=== PATIENT | male | born 1990 | race Caucasian/White ===

== ENCOUNTER 2020-06-07 11:06 | Outpatient (CLI) | payer SELFPAY ==
[2020-06-11 15:27] LABS: Patient Race White; SARS-CoV-2 RNA Undetected (Undetected); SARS-CoV-2 Specimen Source Nasal
== END 2020-06-07 11:26 ==
PROVIDERS: PCP Family Medicine; Visit Provider Family Medicine
DX: Z11.59 Encounter for screening for other viral diseases (principal)
CPT/HCPCS: U0003

== ENCOUNTER 2021-05-05 04:40 | Emergency (ER) | payer BC, SELFPAY ==
--- NOTE | 2021-05-05 04:45 | DI.RAD_ITS ---
Exam(s) XR PORTABLE CHEST AP EXAM: XR PORTABLE CHEST AP CLINICAL HISTORY: coug, sob, r/o pneumonia TECHNIQUE: 2D digital imaging was performed of the chest. One image was obtained. An AP view was ob tained. COMPARISON: CR CHEST 2 VIEWS PA,LAT from 05/16/2015 CR CHEST 2 VIEWS PA,LAT from 05/16/2015 FINDINGS: MEDIASTINUM: Normal. HEART: Normal. PULMONARY VASCULATURE: Normal. LUNGS: Clear. PLEURAL SPACE: No pleural effusion or pneumothorax. BONE:Within normal limits for the patient's age. OTHER FINDINGS:Normal. IMPRESSION: No acute pulmonary findings. DATA REPOSITORY: RADIATION DOSE DELIVERED:
--- NOTE | 2021-05-05 04:45 | RT.EKG_ITS ---
APPROVED REPORT Exam: Resting ECG Reason for Exam: chest burning Patient Location: E HR:76 bpm ECG Measurements Heart Rate 76 AXIS PA 136 P 64 QRSd 90 QRS 57 QT 376 T 66 QTc 424 Conclusion Sinus rhythm...normal P axis, V-rate 60- 99 Physician: no stemi
[2021-05-05 04:46] VITALS: BP 143/80; PULSE 85; RESP 18; TEMP 36.7; O2SAT 97
--- NOTE | 2021-05-05 05:08 | ED.GENADUL_ITS ---
Discharge Plan Disposition Patient Disposition: HOME Condition: Good Discharge Details Clinical Impression: URI (upper respiratory infection) Primary Care Provider: Nikunj Tipton ED Provider: Vance Whitt Home Meds and New Rx's Prescriptions: No Action No Known Home Meds RF: 0 Discharge Instructions Instructions: Upper Respiratory Infection (ED) Additional Instructions: At this at this time there is no evidence of large pneumonia. I suspect you have mild bronchitis. This is likely from a mild virus causing her runny nose sore throat and congestion. Please take the inhaler, 2 puffs every 4-6 hours as needed. Taking loratadine will also help diminish your symptoms of runny nose and congestion. You can take 10 mg of loratadine. This can be found over -the-counter. If you notice any worsening of your symptoms, or any new symptoms such as vomiting, diarrhea, fever, chills, shortness of breath, chest pain, numbness, weakness, or fainting , please return immediately to the emergency department for reevaluation. Please follow up with your primary care provider as soon as possible for reassessment and reevaluation. As always, it was a pleasure part icipating in your medical care today. Referrals: Nikunj Tipton, [facility] [Primary Care Provider] - Discharge Data Discharge Date/Time-TO BE ENTERED AT DEPARTURE: 05/05/21 06:28 Medical Decision Making 30-year-old male with a past medical history of asthma presents today for evaluation of cough, burning in his chest, sore throat and congestion. Patient states that the symptoms have been present for the last 12 hours, worsening in the last 2-3. He is fully vaccinated against Covid 2 shots. He denies any previous cardiac disease. He denies any vomiting or diarrhea. He denies any other sick contacts at home. No other complaints at this time. No other modifying factors. The patient does not smoke. Physical exam demonstrates good oxygenation, clear lung sounds, erythema is noted in the posterior oropharynx. Differential includes viral URI, coronavirus, mild bronchitis. Will get a portable chest x-ray, give a breathing treatment, get a Covid test and strep test, monitor closely and reassess. 6:24 AM Covid test is negative, strep test is negative. Symptoms likely secondary to a mild viral upper respiratory infection. Patient was given a breathing treatment and he did have improvement with this. Will give an albuterol inhaler for home use. Discussed red flags which to return. No clinical evidence of pneumonia at this time. I have extensively reviewed the treatment plan and discharge instructions with the patient. I have addressed all patient concerns at this time. The patient was made aware of what symptoms to monitor for that would warrant a return to the emergency department. Discussed the plan with the patient, they demonstrate verbal understanding and agreement with our assessment and plan at this time. The documentation in this chart was dictated using [employer] dictation software. Please excuse any dictation errors. FINDINGS: MEDIASTINUM: Normal. HEART: Normal. PULMONARY VASCULATURE: Normal. LUNGS: Clear. PLEURAL SPACE: No pleural effusion or pneumothorax. BONE:Within normal limits for the patient's age. OTHER FINDINGS:Normal. IMPRESSION: No acute pulmonary findings. HPI General Date/Time Provider Initiated Documentation: 05/05/21 04:41 . HPI Narrative: 30-year-old male with a past medical history of asthma presents today for evaluation of cough, burning in his chest, sore throat and congestion. Patient states that the symptoms have been present for the last 12 hours, worsening in the last 2-3. He is fully vaccinated against Covid 2 shots. He denies any previous cardiac disease. He denies any vomiting or diarrhea. He denies any other sick contacts at home. No other complaints at this time. No other modifying factors. The patient does not smoke. Related Data Home Medications Medication Instructions Recorded Confirmed Unknown [No Known Home Meds] 04/20/19 08/11/20 Allergies Allergy/AdvReac Type Severity Reaction Status Date / Time tramadol Allergy Severe Swelling/Ed Verified 05/05/21 04:49 bhupendra General Stated Complaint: RespSymp JOMAR: 4 Review of Systems All systems reviewed & are unremarkable except as noted in HPI and below PFSH Family History Mother Hyperlipidemia Father , age 35 No problems noted. Social History Smoking/Tobacco Use Status: Current every day Tobacco Type: smokeless tobacco Smokeless tobacco user: chewing tobacco Quit status: not considering quitting Second Hand Exposure: Yes Smoking risk assessment performed?: Yes Alcohol Intake: current Alcohol Intake frequency: a few times a week Alcohol type: beer and hard liquor Drug use: Never Substance use type: does not use Caregiver/Support person: No Household members: spouse and children Housing: house Communication Needs: None Do you need help understanding health information?: Often Pets and animals: Yes Pets and animals: cat(s), dog(s), fish and other Details: chickens Sexually active: Yes Do you think of yourself as: straight/heterosexual Current gender identity: male What is your relationship status?: How often do you talk on the phone with friends or family?: never How often do you get together with friends or relatives?: never How often do you attend oriental orthodox or church services?: decline to answer Do you belong to any clubs or organized social groups?: no Panel score (0-1 are the most socially isolated patients): 1 What type of physical activity do you participate in: none Ludy/Pentecostalism: None Seatbelt use: always Helmet use: Yes Helmet use: sometimes Drive intox or ride w/intox motorcycle delivery driver: No Do you feel safe at home: Yes Do you feel safe in your relationship?: Yes Victim of physical abuse: No Victim of emotional abuse: No Victim of sexual abuse: No Would you like helpful sources: No Exam Narrative Exam Narrative: 1.Const: Well-nourished, Well-developed, appearing stated age 2.Eyes: PERRL, no conjunctival injection, and symmetrical lids. 3.ENT: Atraumatic external nose and ears. Moist MM. Neck: Symmetric, trachea midline, No thyromegaly. Mild erythema in the posterior oropharynx, minimal tonsillar enlargement, no tonsillar exudates. No evidence of peritonsillar abscess. 4.CVS: +S1/S2, No murmurs or gallops. Peripheral pulses 2+ and equal in all extremities. Brisk capillary refill in all extremities. 5.RESP: Unlabored respiratory effort. Clear to auscultation bilaterally. No wheezes rales or rhonchi 6.GI: Soft, Nontender/Nondistended, No hepatosplenomegaly. No guarding or rebound. 7.MSK: Normocephalic/Atraumatic, Extremities w/o deformity or ttp No cyanosis or clubbing, Normal movement of all extremities 8.Skin: Warm, Dry. No rashes or lesions. 9.Neuro: back line cook II-XII grossly intact. Sensation grossly intact, no focal neurologic deficits. 10.Psych: (AAO) x3. Appropriate mood and affect Course Vital Signs Vital signs: Vital Signs Temperature 36.7 C 05/05/21 04:46 Pulse 85 05/05/21 04:46 Respiratory Rate 18 05/05/21 04:46 Blood Pressure 143/80 H 05/05/21 04:46 Pulse Oximetry 97 05/05/21 04:46 Temperature 36.7 C 05/05/21 04:46 Temperature Source Skin 05/05/21 04:46 Pulse 85 05/05/21 04:46 Respiratory Rate 18 05/05/21 04:46 Respiratory Effort Non-Labored 05/05/21 04:51 Blood Pressure 143/80 H 05/05/21 04:46 Pulse Oximetry 97 05/05/21 04:46 Pain Level 1 05/05/21 04:46 PAWSS Have you Been Recently Intoxicated or Drunk Within the Last 30 days?: Yes Have you Ever Experienced Previous Episodes of Alcohol Withdrawal?: No Have you ever Experienced Withdrawal Seizures?: No Have you ever Experienced Delirium Tremens(DT)s?: No Have you ever undergone Alcohol Rehabilitation Treatment (i.e, inpt ot outpatient treatment programs)?: No Have you ever Experienced Blackouts?: No Have you ever Combined Alcohol with other Downers within the last 90 days?: No Have you ever Combined Alcohol with any other Substance of Abuse during the last 90 days?: No Positive Blood Alcohol level on Presentation? [PCS.BAL]: No Evidence of Increased Autonomic Activity (i.e. HR>120, tremor, sweating, agitation, nausea)?: No Result: 1
[2021-05-05 05:20] LABS: Source Nasal/Nares
[2021-05-05 05:23] VITALS: RESP 1; O2SAT 99
[2021-05-05] MEDS: Albuterol/Ipratropium 3 ML UPD VIAL UPD (05:23)
[2021-05-05 05:52] VITALS: RESP 1
[2021-05-05 06:11] LABS: COVID-19 PCR Negative (Negative)
[2021-05-05 06:27] VITALS: BP 127/63; PULSE 85; RESP 16; O2SAT 97
[2021-05-05] MEDS: Albuterol HFA 8 GM 60 PUFF INH IH (06:28)
[2021-05-05] MEDS: Inhaler, Assist Device 1 EACH MC (06:29)
--- NOTE | 2021-05-05 07:31 | DI.VRAD_ITS ---
PROCEDURE INFORMATION: Exam: XR Chest Exam date and time: 05/05/2021 4:50 AM Age: 30 years old Clinical indication: Cough and shortness of breath; Patient HX: R/O pneumonia TECHNIQUE: Imaging protocol: XR of the chest. Views: 1 view. COMPARISON: CR CHEST 2 VIEWS PA,LAT 05/16/2015 10:42 AM FINDINGS: Lungs: Unremarkable. No consolidation. Pleural spaces: Unremarkable. No pleural effusion. No pneumothorax. Heart/Mediastinum: Unremarkable. No cardiomegaly. Bones/joints: Unremarkable. IMPRESSION: No acute findings. There is no significant interval change from the previous study. Dictated and Authenticated by: Clyde Mon MD. Ordering:MOHAN Woodard MD
== END 2021-05-05 06:28 | disposition home or self-care (01) ==
PROVIDERS: Emergency Provider Student in an Organized Health Care Education/Training Program; PCP Nurse Practitioner Family
DX: J06.9 Acute upper respiratory infection, unspecified (principal); R06.02 Shortness of breath
CPT/HCPCS: 87635; 87880; 93005; 94640; 99284; 71045; 87081; 93010; 99283; J7620

== ENCOUNTER 2022-01-27 12:02 | Emergency (ER) | payer OTHER, SELFPAY ==
--- NOTE | 2022-01-27 12:00 | DI.RAD_ITS ---
Exam(s) XR ANKLE LT COMPLETE EXAM: XR ANKLE LT COMPLETE CLINICAL HISTORY: trauma medial pain. TECHNIQUE: 2D digital imaging was performed. COMPARISON: No exams were available for comparison FINDINGS: 3 views There is no oblique mildly displaced fracture of the distal fibula above the lateral malleolus. Ther e is widening of the mortise. There is also an avulsion fracture off the posterior aspect of the pos terior malleolus. Medial malleolus appears intact as does the talar dome and base of the 5th metatar martha. IMPRESSION: Distal fibular fracture as well as suspected fracture of the posterior malleolus. There is widening of the ankle mortise implying significant ligamentous injury/instability. DATA REPOSITORY: RADIATION DOSE DELIVERED:
[2022-01-27 12:07] VITALS: BP 131/65; PULSE 69; RESP 20; TEMP 36.2; O2SAT 99
--- NOTE | 2022-01-27 12:15 | ED.GENADUL_ITS ---
Discharge Plan Disposition Patient Disposition: HOME Condition: Stable Discharge Details Clinical Impression: Bimalleolar fracture of left ankle Primary Care Provider: Nikunj Tipton ED Provider: Gabe Garcia Home Meds and New Rx's Prescriptions: No Action No Known Home Meds Discharge Instructions Instructions: Ankle Fracture (ED) Additional Instructions: You may take 1000 mg of Tylenol along with 600 mg of ibuprofen every 6 hours as needed for pain. We will also given a limited supply of narcotic pain medication and take as directed. It is important that you call the orthopedic office tomorrow for arrangement of follow-up appointment with high likelihood of surgery this week. If you have any significant worsening of symptoms including unbearable pain, change of color to your foot, severe swelling, or lack of sensation please return immediately to the emergency department. Referrals: [facility] [Provider Group] Discharge Data Discharge Date/Time-TO BE ENTERED AT DEPARTURE: 01/27/22 15:33 Medical Decision Making Patient presenting to the emergency department for chief complaint of left ankle injury. Approximately 20 minutes prior to arrival patient was playing softball and went to slide into [employer] base when he felt his ankle snap and twist. Patient denies any other injury or trauma. Physical exam shows significant tenderness and swelling to medial left ankle with no range of motion secondary to severe pain and discomfort. Exam otherwise unremarkable. I am concerned for fracture so will perform radiological imaging along with giving pain and nausea medication with some fluids. There is a slight abrasion to the anterior surface a similar point to where pain is so we will see if this correlates to area of fracture and possible subtle open fracture. Review of radiological imaging shows acute distal fibular fracture with suspected posterior malleolus fracture along with suggestion of ligamentous injury and ankle instability. No local orthopedist on-call today so [place] [facility] [place] Ray on[place] orthopedic provider [place] [facility] Recommended posterior and stirrup splinting with slight pressure placed on the medial aspect with splinting. We did state that they were able to follow up with patient potential later this week but after discussion with patient patient states that he would prefer to follow-up locally. Patient placed upon the fracture list and informed to call the office tomorrow. Gentle reduction of the fracture was attempted when of placing the Ortho-Glass splint on but repeat images were not performed as I do not feel much additional benefit would be able to be obtained with further pressure and mild reduction. Patient was neurovascularl intact both pre and post splint placement. Patient given limited supply of narcotics from the emergency department and recommended to take [id number] acetaminophen and Motrin as needed for discomfort. After discussion of diagnosis and plan of care patient has no further needs, questions, or concerns and states clear understanding to return to the emergency department for any worsening symptoms. Did discuss with patient risk versus benefit of narcotic use and patient stated understanding of use of narcotics for pain control along with other modalities he can use to help with pain. This documentation was generated using [employer] system, please disregard any oddities of phrase or misspellings. Imaging Data Radiologic Study: Radiologist's impression: FINDINGS: Bones/joints: there is widening of the medial clear space. acute mildly displaced distal fibular fracture. small bony densities are seen along the posterior aspect of the distal tibia concerning for fracture. Soft tissues: soft tissue swelling. IMPRESSION: Acute distal fibular fracture. suspected acute posterior malleolar fracture. widening of the medial clear space suggestive of ligamentous injury and ankle instability. Orthopedic consultation and follow-up is recommended. HPI General Mode of arrival: wheelchair . Date/Time Provider Initiated Documentation: 01/27/22 12:03 . Limitations to Documentation: no limitations . Information obtained by: patient and RN notes reviewed . History of Present Illness 31 year old M presents to the emergency department with the chief complaint of Left ankle, described as severe, with intensity rated at 10. Quality is described as sharp, and is localized to the left and lower extremity. Patient reports no radiation. Patient started experiencing this minute(s) (20) and it has been constant. No relieving factors improve symptom(s), Movement worsens symptoms . Patient notes no other symptoms.. Patient did receive the following treatments prior to arrival, none Related Data Home Medications Medication Instructions Recorded Confirmed Unknown [No Known Home Meds] 11/02/21 01/27/22 Allergies Allergy/AdvReac Type Severity Reaction Status Date / Time tramadol Allergy Severe Swelling/Ed Verified 01/27/22 12:11 bhupendra General Stated Complaint: Orthopedic JOMAR: 4 Review of Systems Constitutional Constitutional: Denies headache(s) Eyes Eyes: Denies change in vision ENT Ears, Nose, Mouth, and Throat: Denies headache(s) Cardiovascular Cardiovascular: Denies chest pain, Denies syncope and Denies dyspnea Respiratory Respiratory: Denies dyspnea Gastrointestinal Gastrointestinal: Denies abdominal pain Musculoskeletal Musculoskeletal: Reports as per HPI, Reports joint swelling and Reports limited range of motion Integumentary/Breasts Skin/Breast: Denies wounds Neurologic Neurologic: Denies syncope and Denies headache(s) PFSH All Active Problems (Updated 01/27/22 @ 15:12 by Gabe Garcia NP) Bimalleolar fracture of left ankle (Acute) Obesity (BMI 30-39.9) (Acute) Medical History (Updated 01/27/22 @ 15:12 by Gabe Garcia NP) Depressive disorder History of hematuria (04/01/18) Family History Mother Hyperlipidemia Father , age 35 No problems noted. Social History Smoking/Tobacco Use Status: Current every day Tobacco Type: smokeless tobacco Smokeless tobacco user: chewing tobacco and snus Quit status: has quit before Second Hand Exposure: Yes Smoking risk assessment performed?: Yes Alcohol Intake: current Alcohol Intake frequency: a few times a month Alcohol type: beer and hard liquor Drug use: Never Substance use type: does not use Caregiver/Support person: No Household members: spouse and children Housing: house Communication Needs: None Do you need help understanding health information?: Rarely Pets and animals: Yes Pets and animals: cat(s), dog(s) and farm animals Sexually active: Yes Do you think of yourself as: straight/heterosexual Current gender identity: male What is your relationship status?: How often do you talk on the phone with friends or family?: three or more times per week Do you belong to any clubs or organized social groups?: no Panel score (0-1 are the most socially isolated patients): 2 What type of physical activity do you participate in: none Duration: 60-90 minutes/day Frequency: 5-6 times per week Ludy/Congregation: None Seatbelt use: always Drive intox or ride w/intox automation driver: No Do you feel safe at home: Yes Do you feel safe in your relationship?: Yes Victim of physical abuse: No Victim of emotional abuse: No Victim of sexual abuse: No Would you like helpful sources: No Exam Const General: acute distress moderate and not diaphoretic Orientation: alert, awake and oriented x3 Resp Effort & Inspection: normal respiratory effort and able to speak in complete sentences Cardio Rate: regular rate Rhythm: regular rhythm Pulses: dorsalis pedis present Skin Trauma: abrasion (Anterior Left ankle) Extrem General: normal exam except as noted Left lower extremity: knee Details: no tenderness, lower leg Details: no tenderness, no abrasions and no lacerations, ankle Details: tenderness Location: of the medial malleolus, swelling Details: medially, abnormal ROM Details: pain with active ROM, pain with passive ROM and with range as follows (none due to pain) and abrasion anterior Details: single; no ecchymosis and foot Details: normal capillary refill, normal to inspection and no edema; no tenderness Course Vital Signs Vital signs: Vital Signs Temperature 36.2 C L 01/27/22 12:07 Pulse 69 01/27/22 12:07 Respiratory Rate 20 01/27/22 12:07 Blood Pressure 131/65 01/27/22 12:07 Pulse Oximetry 99 01/27/22 12:07 Temperature 36.2 C L 01/27/22 12:07 Temperature Source Temporal Artery Scan 01/27/22 12:07 Pulse 69 01/27/22 12:07 Respiratory Rate 20 01/27/22 12:07 Respiratory Effort 01/27/22 12:07 Blood Pressure 131/65 01/27/22 12:07 Blood Pressure Position Supine 01/27/22 12:07 Pulse Oximetry 99 01/27/22 12:07 Pain Level 10 01/27/22 12:12
[2022-01-27] MEDS: Ondansetron 4 MG/2 ML VIAL IVP (12:25)
[2022-01-27] MEDS: HYDROmorphone 2 MG/ML VIAL 0.5 MG IVP ×2 (12:25→14:45)
[2022-01-27] MEDS: Normal Saline 1,000 ML 1000 ML IV (12:26)
--- NOTE | 2022-01-27 12:40 | DI.VRAD_ITS ---
PROCEDURE INFORMATION: Exam: XR Left Ankle Exam date and time: 01/27/2022 12:29 PM Age: 31 years old Clinical indication: Pain; Ankle; Left TECHNIQUE: Imaging protocol: Radiologic exam of the Left ankle. Views: 3 or more views. COMPARISON: No relevant images were readily available for comparison purposes. FINDINGS: Bones/joints: there is widening of the medial clear space. acute mildly displaced distal fibular fracture. small bony densities are seen along the posterior aspect of the distal tibia concerning for fracture. Soft tissues: soft tissue swelling. IMPRESSION: Acute distal fibular fracture. suspected acute posterior malleolar fracture. widening of the medial clear space suggestive of ligamentous injury and ankle instability. Orthopedic consultation and follow-up is recommended. Dictated and Authenticated by: Keaton Yap MD. Ordering:BETTINA Bernal MD
[2022-01-27] MEDS: HYDROmorphone 2 MG/ML VIAL 1 MG IVP (13:25)
[2022-01-27] MEDS: Ondansetron O.D.T. 4 MG TABEF, 3 TABS/BTL PO (15:26)
--- NOTE | 2022-01-27 18:34 | NUR.NOTE ---
patient referred to orthopaedics for bimaleolar fracture left ankle. I have sent the request. ANAMB
== END 2022-01-27 15:33 | disposition home or self-care (01) ==
PROVIDERS: Emergency Provider Nurse Practitioner Family; PCP Nurse Practitioner Family
DX: S82.842A Displaced bimalleolar fracture of left lower leg, initial encounter for closed fracture (principal); X50.1XXA Overexertion from prolonged static or awkward postures, initial encounter
CPT/HCPCS: 29515; 96361; 96374; 96375; 96376; 99284; 73610; J2405

== ENCOUNTER 2022-02-16 22:59 | Emergency (ER) | payer OTHER, SELFPAY ==
[2022-02-16 23:14] VITALS: BP 137/77; PULSE 80; RESP 14; TEMP 37; O2SAT 97
--- NOTE | 2022-02-16 23:38 | ED.GENADUL_ITS ---
Discharge Plan Disposition Patient Disposition: HOME Condition: Good Discharge Details Clinical Impression: Aftercare for cast or splint check or change Primary Care Provider: Nikunj Tipton ED Provider: Gabe Garcia Home Meds and New Rx's Prescriptions: No Action No Known Home Meds Discharge Instructions Additional Instructions: Please continue scheduled follow-up with orthopedist and feel free to return for any new or worsening symptoms. Discharge Data Discharge Date/Time-TO BE ENTERED AT DEPARTURE: 02/16/22 23:44 Medical Decision Making Postoperative splint got wet this evening by accident. Patient has no other symptoms. Splint was replaced and patient to continue follow-up with [facility] orthopedic group. After discussion of diagnosis and plan of care patient has no further needs, questions, or concerns and states clear understanding to return to the emergency department for any worsening symptoms. This documentation was generated using [employer] system, please disregard any oddities of phrase or misspellings. HPI General Mode of arrival: ambulatory (On crutches) . Date/Time Provider Initiated Documentation: 02/16/22 23:16 . Information obtained by: patient, family, RN notes reviewed and old records reviewed . History of Present Illness 31 year old M presents to the emergency department with the chief complaint of Postoperative splinting got wet- requesting replacement, Patient started experiencing this hour(s) (2) and it has been constant. Patient notes no other symptoms.. Related Data Home Medications Medication Instructions Recorded Confirmed Unknown [No Known Home Meds] 11/02/21 02/16/22 Allergies Allergy/AdvReac Type Severity Reaction Status Date / Time tramadol Allergy Severe Swelling/Ed Verified 02/16/22 23:20 bhupendra General Stated Complaint: Orthopedic JOMAR: 4 Review of Systems All systems reviewed & are unremarkable except as noted in HPI and below Musculoskeletal Musculoskeletal: Reports as per HPI PFSH All Active Problems (Updated 02/16/22 @ 23:40 by Gabe Garcia NP) Bimalleolar fracture of left ankle (Acute) Aftercare for cast or splint check or change (Acute) Obesity (BMI 30-39.9) (Acute) Medical History (Updated 02/16/22 @ 23:40 by Gabe Garcia NP) Depressive disorder History of hematuria (04/01/18) Family History Mother Hyperlipidemia Father , age 35 No problems noted. Social History Smoking/Tobacco Use Status: Current every day Tobacco Type: smokeless tobacco Smokeless tobacco user: chewing tobacco and snus Quit status: has quit before Second Hand Exposure: Yes Smoking risk assessment performed?: Yes Alcohol Intake: current Alcohol Intake frequency: a few times a month Alcohol type: beer and hard liquor Drug use: Never Substance use type: does not use Caregiver/Support person: No Household members: spouse and children Housing: house Communication Needs: None Do you need help understanding health information?: Rarely Pets and animals: Yes Pets and animals: cat(s), dog(s) and farm animals Sexually active: Yes Do you think of yourself as: straight/heterosexual Current gender identity: male What is your relationship status?: How often do you talk on the phone with friends or family?: three or more times per week Do you belong to any clubs or organized social groups?: no Panel score (0-1 are the most socially isolated patients): 2 What type of physical activity do you participate in: none Duration: 60-90 minutes/day Frequency: 5-6 times per week Ludy/Pentecostal: None Seatbelt use: always 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 Do you feel safe at home: Yes Do you feel safe in your relationship?: Yes Victim of physical abuse: No Victim of emotional abuse: No Victim of sexual abuse: No Would you like helpful sources: No Exam Const General: cooperative, no acute distress and not ill appearing Orientation: alert, awake and oriented x3 Resp Effort & Inspection: normal respiratory effort, able to speak in complete sentences and no respiratory distress Neuro General: patient alert, patient awake, patient oriented x3, moves all extremities and no focal motor deficits Sensory Exam: no sensory deficits noted Extrem General: other (Wet splinting noted to left lower extremity.) Course Vital Signs Vital signs: Vital Signs Temperature 37 C 02/16/22 23:14 Pulse 80 02/16/22 23:14 Respiratory Rate 14 02/16/22 23:14 Blood Pressure 137/77 02/16/22 23:14 Pulse Oximetry 97 02/16/22 23:14 Temperature 37 C 02/16/22 23:14 Temperature Source Skin 02/16/22 23:14 Pulse 80 02/16/22 23:14 Respiratory Rate 14 02/16/22 23:14 Blood Pressure 137/77 02/16/22 23:14 Blood Pressure Position Sitting 02/16/22 23:14 Pulse Oximetry 97 02/16/22 23:14 Oxygen Delivery Method Room Air 02/16/22 23:14 Oxygen Flow Rate 0 02/16/22 23:14 Pain Level 2 02/16/22 23:14 Procedures Orthopedic Splinting/Casting Injury #1: Side: left Lower Extremity Injury Location: ankle Lower Extremity Immobilizer: posterior splint, stirrup splint and Nicho wrap Other Orthopedic Equipment: crutches
== END 2022-02-16 23:44 | disposition home or self-care (01) ==
PROVIDERS: Emergency Provider Nurse Practitioner Family; PCP Nurse Practitioner Family
DX: S82.492D Other fracture of shaft of left fibula, subsequent encounter for closed fracture with routine healing (principal); X58.XXXD Exposure to other specified factors, subsequent encounter
CPT/HCPCS: 29515; 99283; 99281

== ENCOUNTER 2022-08-14 08:05 | Outpatient (CLI) | payer OTHER, SELFPAY ==
[2022-08-14 13:26] LABS: Calculated LDL 122 mg/dL (<100); Cholesterol 177 mg/dL (<200); HDL Cholesterol 42 mg/dL (40-60); Triglyceride 65 mg/dL (<150)
[2022-08-14 22:58] LABS: PSA, Screening 0.4 ng/mL (<=2.5)
== END 2022-08-14 08:06 | disposition home or self-care (01) ==
LOC: LOS 08:06
PROVIDERS: PCP Nurse Practitioner Family; Referring Provider Nurse Practitioner Family; Visit Provider Nurse Practitioner Family
DX: Z13.220 Encounter for screening for lipoid disorders (principal); Z87.448 Personal history of other diseases of urinary system; Z13.1 Encounter for screening for diabetes mellitus; Z12.5 Encounter for screening for malignant neoplasm of prostate
CPT/HCPCS: 36415; 80061; 84153; 83036

== ENCOUNTER 2023-03-27 20:30 | Emergency (ER) | payer OTHER, SELFPAY ==
[2023-03-27 20:34] VITALS: BP 147/80; PULSE 85; RESP 18; TEMP 36.8; O2SAT 99
--- NOTE | 2023-03-27 20:50 | W.ED.GENAD ---
Discharge Plan Disposition Patient Disposition: Home Condition: Stable Discharge Details Clinical Impression: Tattoo reaction, Cellulitis of left lower leg Primary Care Provider: Nikunj Tipton ED Provider: Shweta Tineo Home Meds and New Rx's Prescriptions: New cephalexin 500 mg tablet 500 mg PO BID 7 Days Qty: 14 0RF Discharge Instructions Instructions: Cellulitis (ED) Additional Instructions: Use bacitracin or similar [id number] antibiotic ointment instead of the Aquaphor. Keep covered is much as possible while at work. You do need to air dry at least 1 or 2 hours a day. Take the antibiotics as directed. If no improvement you may apply a small amount of topical Benadryl gel which you can also get [id number]. Follow up with primary care provider in 3-5 days if needed. Return to ED sooner if any worsening redness, swelling, fever chills body aches or concerns. Increase oral fluids. Please give the antibiotics at least 3 days. Please take Tylenol or Ibuprofen with food every 4-6 hours as needed for pain and swelling. You may also be having a reaction to the tattoo ink Referrals: Nikunj Tipton, TRANSPORTATION MAINTENANCE WORKER [Primary Care Provider] - 5 days Discharge Data Discharge Date/Time-TO BE ENTERED AT DEPARTURE: 03/27/23 21:21 Medical Decision Making 32-year-old male presents to the ER was chief complaint of possible infection noted to tattoo on his left lateral calf. He noticed increased redness and swelling approximately 24 to 48 hours ago. He reports that he had a tattoo done in his house per RN report it was a tattoo kit from [employer]. He does have some patchy raised red erythemic areas to his left lateral calf, he has been placing Aquaphor onto his tattoo. He does not have any red raised area where his sock has been or where his pants have her strapped. He is unsure if he is having a reaction to the Aquaphor the ED or to infection. He denies any systemic symptoms no fever, myalgias, chills denies any nausea vomiting diarrhea or any other associated symptoms. He reports he has been at work at [employer] and may have gotten it dirty. No significant past medical history denies being on antibiotics in the last 3 months. Bacitracin, cephalexin given here in the department instructed on home care. We will give cephalexin twice daily x7 days. Discussed home care and strict return instructions he verbalized understanding. This text was generated using [facility] dictation system, please disregard any oddities of phrase or misspellings. HPI General Mode of arrival: ambulatory. Date/Time Provider Initiated Documentation: 03/27/23 20:32. Limitations to Documentation: no limitations. Information obtained by: patient, RN notes reviewed and old records reviewed. HPI Narrative: 32-year-old male presents to the ER was chief complaint of possible infection noted to tattoo on his left lateral calf. He noticed increased redness and swelling approximately 24 to 48 hours ago. He reports that he had a tattoo done in his house per RN report it was a tattoo kit from [employer]. He does have some patchy raised red erythemic areas to his left lateral calf, he has been placing Aquaphor onto his tattoo. He does not have any red raised area where his sock has been or where his pants have her strapped. He is unsure if he is having a reaction to the Aquaphor the ED or to infection. He denies any systemic symptoms no fever, myalgias, chills denies any nausea vomiting diarrhea or any other associated symptoms. He reports he has been at work at [employer] and may have gotten it dirty. No significant past medical history denies being on antibiotics in the last 3 months. Related Data Home Medications Medication Instructions Recorded Confirmed cephalexin 500 mg tablet 500 mg PO BID 7 days #14 tabs 03/27/23 Previous Rx's Medication Instructions Recorded cephalexin 500 mg tablet 500 mg PO BID 7 days #14 tabs 03/27/23 Allergies Allergy/AdvReac Type Severity Reaction Status Date / Time tramadol Allergy Severe Swelling/Ed Verified 08/14/22 07:50 bhupendra General Stated Complaint: RashLesion JOMAR: 3 Review of Systems All systems reviewed & are unremarkable except as noted in HPI and below Constitutional Constitutional: Denies chills and Denies fever(s) Integumentary/Breasts Skin/Breast: Reports as per HPI, Reports erythema and Reports skin pain PFSH All Active Problems (Updated 03/27/23 @ 21:14 by Shweta Tineo NP) Tattoo reaction (Acute) Cellulitis of left lower leg (Acute) Obesity (BMI 30-39.9) (Acute) Medical History (Updated 03/27/23 @ 21:14 by Shweta Tineo NP) Depressive disorder Fracture of left lower leg surgically repaired at [facility] History of hematuria (04/01/18) Family History Mother Hyperlipidemia Father , age 35 No problems noted. Social History (Updated 08/14/22 @ 14:16 by Radha Brandon) Smoking/Tobacco Use Status: Current every day Tobacco Type: e-cigarettes Quit status: has quit before Second Hand Exposure: Yes Smoking risk assessment performed?: Yes Alcohol Intake: current Alcohol Intake frequency: a few times a month Alcohol type: beer and hard liquor Drug use: Never Substance use type: does not use Caregiver/Support person: No Household members: spouse and children Housing: house Communication Needs: None Do you need help understanding health information?: Rarely Pets and animals: Yes Pets and animals: cat(s), dog(s) and farm animals Sexually active: Yes Do you think of yourself as: straight/heterosexual Current gender identity: male What is your relationship status?: How often do you talk on the phone with friends or family?: twice per week How often do you get together with friends or relatives?: once per week How often do you attend rastafarian or latter day services?: decline to answer Do you belong to any clubs or organized social groups?: no Panel score (0-1 are the most socially isolated patients): 2 What type of physical activity do you participate in: none Ludy/Lutheran: None Seatbelt use: always Helmet use: Yes Helmet use: sometimes 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 Multiple patchy red raised areas surrounding new tattoo 2. Multiple patchy red raised areas surrounding new tattoo 3. Multiple, patchy red raised areas surrounding new tattoo Extrem General: normal to inspection Left lower extremity: full ROM; no edema Course Vital Signs Vital signs: Vital Signs Temperature 36.8 C 03/27/23 20:34 Pulse 85 03/27/23 20:34 Respiratory Rate 18 03/27/23 20:34 Blood Pressure 147/80 H 03/27/23 20:34 Pulse Oximetry 99 03/27/23 20:34 Temperature 36.8 C 03/27/23 20:34 Temperature Source Temporal Artery Scan 03/27/23 20:34 Pulse 85 03/27/23 20:34 Respiratory Rate 18 03/27/23 20:34 Respiratory Effort Normal 03/27/23 20:39 Blood Pressure 147/80 H 03/27/23 20:34 Pulse Oximetry 99 03/27/23 20:34 Oxygen Delivery Method Room Air 03/27/23 20:34 Oxygen Flow Rate 0 03/27/23 20:34 PAWSS Have you Been Recently Intoxicated or Drunk Within the Last 30 days?: No Have you Ever Experienced Previous Episodes of Alcohol Withdrawal?: No Have you ever Experienced Withdrawal Seizures?: No Have you ever Experienced Delirium Tremens(DT)s?: No Have you ever undergone Alcohol Rehabilitation Treatment (i.e, inpt ot outpatient treatment programs)?: No Have you ever Experienced Blackouts?: No Have you ever Combined Alcohol with other Downers within the last 90 days?: No Have you ever Combined Alcohol with any other Substance of Abuse during the last 90 days?: No Positive Blood Alcohol level on Presentation? [PCS.BAL]: No Evidence of Increased Autonomic Activity (i.e. HR>120, tremor, sweating, agitation, nausea)?: No Result: 0
[2023-03-27] MEDS: Cephalexin 500 MG CAP, 2 CAPS/BTL PO (20:58)
[2023-03-27] MEDS: Cephalexin 500 MG CAP PO (20:58)
[2023-03-27] MEDS: Bacitracin 1 PACKET 2 PACKET TP (20:59)
== END 2023-03-27 21:21 | disposition home or self-care (01) ==
PROVIDERS: Emergency Provider Registered Nurse Emergency; PCP Nurse Practitioner Family
DX: L03.116 Cellulitis of left lower limb; T78.8XXA Other adverse effects, not elsewhere classified, initial encounter
CPT/HCPCS: 99283

== ENCOUNTER 2023-06-20 03:08 | Outpatient (CLI) | payer OTHER, SELFPAY ==
[2023-06-20 09:19] LABS: TSH (W/Ref FT4) 2.07 uIU/mL (0.36-3.74)
[2023-06-20 19:43] LABS: PSA, Screening 0.4 ng/mL (<=2.5)
== END 2023-06-20 03:09 | disposition home or self-care (01) ==
PROVIDERS: PCP Nurse Practitioner Family; Visit Provider Nurse Practitioner Family
DX: E66.9 Obesity, unspecified (principal); N52.9 Male erectile dysfunction, unspecified; Z68.30 Body mass index [BMI] 30.0-30.9, adult
CPT/HCPCS: 36415; 84153; 84443

== ENCOUNTER 2023-09-25 01:12 | Emergency (ER) | payer OTHER, SELFPAY ==
[2023-09-25 01:15] VITALS: BP 141/62; PULSE 77; RESP 16; TEMP 37.1; O2SAT 98
--- NOTE | 2023-09-25 02:14 | W.ED.GENAD ---
HPI General Mode of arrival: ambulatory. Date/Time Provider Initiated Documentation: 09/25/23 01:13. Limitations to Documentation: no limitations. Information obtained by: patient. HPI Narrative: 33yo M previously healthy presenting with penile pain. Pain is sharp, severe, intermittent, and keeping him awake. Lasts ~10-15 seconds at a time. Has been going on for 2-3 days. One week ago had suprapubic pain which has since resolved. No flank pain. No difficulty voiding. No dysuria. No fevers, chills, or rash. Has never experienced anything like this before. No testicular pain. No penile discharge. No trauma or injury to the area, has not inserted anything in the urethra. Related Data Home Medications Medication Instructions Recorded Confirmed phentermine 15 mg capsule 15 mg PO DAILY #90 caps 07/11/23 07/31/23 Previous Rx's Medication Instructions Recorded phentermine 15 mg capsule 15 mg PO DAILY #90 caps 07/11/23 Allergies Allergy/AdvReac Type Severity Reaction Status Date / Time tramadol Allergy Severe Swelling/Ed Verified 07/31/23 17:37 bhupendra General Stated Complaint: Male Reproductive Problem JOMAR: 4 Review of Systems Narrative: see HPI Exam Narrative Exam Narrative: General: Alert, well appearing, well nourished, in no acute distress. Head: Normocephalic, atraumatic Neck: Trachea midline, ?Neck supple. Cardiac: ?No cyanosis. Resp: No respiratory distress. Speaking in full sentences. . Abd: ?Soft, non-distended, nontender : ?No suprapubic tenderness. No CVA tenderness. Normal external genitalia. No penile discharge. No lesions or eythema. Testicles non-tender with normal lie. Extremities: ?No deformities.? No peripheral edema. Neurologic: GCS 15. ? Moves all extremities freely against gravity Course Vital Signs Vital signs: Vital Signs Temperature 37.1 C 09/25/23 01:15 Pulse 77 09/25/23 01:15 Respiratory Rate 16 09/25/23 01:15 Blood Pressure 141/62 H 09/25/23 01:15 Pulse Oximetry 98 09/25/23 01:15 Temperature 37.1 C 09/25/23 01:15 Pulse 77 09/25/23 01:15 Respiratory Rate 16 09/25/23 01:15 Respiratory Effort Normal 09/25/23 01:20 Blood Pressure 141/62 H 09/25/23 01:15 Pulse Oximetry 98 09/25/23 01:15 Medical Decision Making 33yo M previously healthy presenting with intermittent penile pain x 2-3 days with associated hematuria. Sharp pain, tonight keeping him awake. Blood clot in urine this evening. Systemically well, no fevers, no testicular pain, no penile discharge or lesions. Vital signs reassuring on arrival. Normal external genital exam, no lesions or discharge noted. History/exam not concerning for HSV, chlamydia, gonorrhea, orchitis, epidiymidis, other infection. Denies any trauma. Kidney stone possible; if this is the case given symptoms would be in urethra at this time and likely would pass. UA with hematuria, not infected. Given toradol for pain with improvement. Discussed options with patient including CT scan to look for stone; he elected to forgo CT which is reasonable. Given urine strainer. Discharged home to followup with PCP; discharge instructions and return precuations were reviewed with patient who verbalized understanding. All questions were answered and he is in full agreement with the plan. Lab Data Labs: Laboratory Tests Range/Units 09/25/23 01:30 Urine Color (Yellow) Yellow Urine Clarity (Clear) Sl Cloudy Urine pH (5-8) 6.0 Ur Specific [place] (1.005-1.025) >= 1.030 H Urine Protein (Neg-Trace) mg/dL 30 H Urine Ketones (Negative) mg/dL Negative Urine Blood (Negative) Large H Urine Nitrite (Negative) Negative Urine Bilirubin (Negative) Small H Urine Urobilinogen (Up to 0.2) mg/dL 1.0 H Ur Leukocyte Esterase (Negative) Negative Urine RBC (0-2) HPF 20-50 H Urine WBC (0-5) HPF 3-5 Ur Epithelial Cells (Negative) HPF Few Urine Crystals (Negative) HPF Negative Urine Bacteria (Negative) HPF Few Urine Mucus (Negative) Moderate Ur Culture Indicated? No Urine Glucose (Negative) mg/dL Negative Quality:SDOH Health Related Social Needs: No Data to Display PFSH All Active Problems (Updated 09/25/23 @ 02:29 by Tita Dimas MD) Pain in penis (Acute) Erectile dysfunction (Acute) Obesity (BMI 30-39.9) (Acute) Medical History Fracture of left lower leg surgically repaired at [facility] History of hematuria (04/01/18) Depressive disorder Family History Mother Hyperlipidemia Father , age 35 No problems noted. Social History Smoking/Tobacco Use Status: Current every day Tobacco Type: e-cigarettes Quit status: has quit before Second Hand Exposure: Yes Smoking risk assessment performed?: Yes Alcohol Intake: current Alcohol Intake frequency: a few times a month Alcohol type: beer and hard liquor Drug use: Never Substance use type: does not use Caregiver/Support person: No Household members: spouse and children Housing: house Communication Needs: None Do you need help understanding health information?: Rarely Pets and animals: Yes Pets and animals: cat(s), dog(s) and farm animals Sexually active: Yes Do you think of yourself as: straight/heterosexual Current gender identity: male What is your relationship status?: How often do you talk on the phone with friends or family?: twice per week How often do you get together with friends or relatives?: once per week How often do you attend yazdanism or buddhist services?: decline to answer Do you belong to any clubs or organized social groups?: no Panel score (0-1 are the most socially isolated patients): 2 What type of physical activity do you participate in: none Ludy/Rastafari: None Seatbelt use: always Helmet use: Yes Helmet use: sometimes Drive intox or ride w/intox delivery truck driver heavy: No Do you feel safe at home: Yes Do you feel safe in your relationship?: Yes Victim of physical abuse: No Victim of emotional abuse: No Victim of sexual abuse: No Would you like helpful sources: No Discharge Plan Disposition Patient Disposition: Home Condition: Good Discharge Details Clinical Impression: Pain in penis Primary Care Provider: Nikunj Tipton ED Provider: Tita Dimas Home Meds and New Rx's Prescriptions: Continued phentermine 15 mg capsule 15 mg PO DAILY Qty: 90 3RF Rx Instructions: must administer 2 hours after breakfast Discharge Instructions Instructions: How to Strain Your Urine (ED) Additional Instructions: Tylenol and ibuprofen over the counter for pain; follow the directions on the bottle. Call your primary care doctor today to schedule an appointment within the next 3 days to follow up on your visit here. It is possible you have a kidney stone in your urethra; please strain your urine. If you do not pass a stone or your pain does not resolve, you may benefit from seeing a urologist- discuss this with your primary care doctor. Return to the emergency department for new or worsening symptoms including inability to urinate, worsening or severe pain, fever, or if you have any other concerns. Referrals: Nikunj Tipton NP [Primary Care Provider] -
[2023-09-25 02:18] LABS: Bilirubin Small (Negative); Blood Large (Negative); Clarity Sl Cloudy (Clear); Glucose Negative (Negative); Ketones Negative (Negative); Leukocyte Esterase Negative (Negative); Nitrite Negative (Negative); Specific Gravity >= 1.030 (1.005-1.025)
[2023-09-25] MEDS: Ketorolac 15 MG/ML VIAL IM (02:21)
[2023-09-25 02:31] LABS: Bacteria Few HPF (Negative); C & S Indicated? No; Crystals Negative HPF (Negative); Epithelial Cells Few HPF (Negative); Mucus Moderate (Negative); RBC 20-50 HPF (0-2)
== END 2023-09-25 02:47 | disposition home or self-care (01) ==
PROVIDERS: Emergency Provider Student in an Organized Health Care Education/Training Program; PCP Nurse Practitioner Family
DX: N48.89 Other specified disorders of penis (principal); R31.9 Hematuria, unspecified; F17.290 Nicotine dependence, other tobacco product, uncomplicated
CPT/HCPCS: 96372; 99283; 81003; 81015; J1885

== ENCOUNTER 2024-06-16 14:43 | Outpatient (REF) | payer OTHER, SELFPAY ==
--- OUTSIDE RECORDS SUMMARY | 2024-06-16 14:46 | XMS_ITS | Clinical Summary ---
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 Active Active Problems Problem Noted Date Diagnosed Date ORIF L ankle fracture 02/05/22 Dr. Tavarez Family History Medical History Relation Comments Diabetes Neg Hx Social History Tobacco Use Types Packs/Day Years Used Date Smoking Tobacco: Former Cigarettes Q uit: 2009 Smokeless Tobacco: Former Quit: 05/03/2022 Alcohol Use Standard Drinks/Week Comments Not Currently 5 (1 standard drink = 0.6 oz pur e alcohol) occasionally Sex and Gender Information Value Date Recorded Sex Assigned at Not on file Gender Identity Not on file Sexual Orientation Not on file Last Filed Vital Signs Vital Sign Reading Time Taken Comments Blood Pressure 137/76 06/03/2022 10:02 AM EDT Pulse 66 06/03/2022 10:02 AM EDT Temperature 36.7 ??C (98 ??F) 02/07/2022 10:47 AM EDT Respiratory Rate 16 02/05/2022 11:00 AM EDT Oxygen Saturation 96% 02/05/2022 11:00 AM EDT Inhaled Oxygen Concentration - - Weight 113.4 kg (250 lb) 06/03/2022 10:02 AM EDT Height 175.3 cm (5' 9) 06/03/2022 10:02 AM EDT Body Mass Index 36.92 06/03/2022 10:02 AM EDT Plan of Treatment Health Maintenance Due Date Last Done Comments HIV screen 2006 Hepatitis C Screening 2006 Lipid Screening 2006 Hepatitis B vaccine (0-59 yrs) (1) 2007 Tetanus/Diphtheria/Pertussis Vaccines (1 - Tdap) 06/21 Covid-19 Vaccine (1 - season) 2024 Influenza (Flu) vaccine (1 o f 1 - Influenza standard series) 04/04/2024 Medical Devices Implanted Type Area Gift Basket Packer Device Identifier Shelf Expiration Date Model / Serial / Lot Kit Arthroscopic Fixation Syndesmosis Knotless Tightrope ([id number]) (Autoreq) - [id number] Implanted:Qty: 1 on 02/05/2022 by Jewel Tavarez MD at [facility] IMPLANTS Left: Ankle [employer] [place] 09/03/2026 [id number] / / [id number] Plate 107mm Ant Lat /3 Tub 9 Hole Variax 2 ([id number]) ([employer]oreq) - [id number] Implanted:Qty: 1 on 02/05/2022 by Jewel Tavarez MD at [facility] IMPLANTS Left: Ankle [employer] - ELISE [id number] / / Screw 3.5x12mm Nlck Ft Variax ([id number]) (Autoreq) - [id number] Implanted:Qty: 1 on 02/05/2022 by Jewel Tavarez MD at [facility] IMPLANTS Left: Ankle [employer] - ELISE [id number] / / Screw 3.5x14mm Nlck Ft Variax ([id number]) ([employer]oreq) - [id number] Implanted:Qty: 2 on 02/05/2022 by Jewel Tavarez MD at [facility] IMPLANTS Left: Ankle [employer] - ELISE [id number] / / Screw 2.7x16mm Nlck Ft Ti Variax ([id number]) ([employer]oreq) - [id number] Implanted:Qty: 1 on 02/05/2022 by Jewel Tavarez MD at [facility] IMPLANTS Left: Ankle [employer] - ELISE [id number] / / Screw 3.5x14mm Lck Ft Ti Variax ([id number]) ([employer]q) - [id number] Implanted:Qty: 1 on 02/05/2022 by Jewel Tavarez MD at [facility] IMPLANTS Left: Ankle [employer]ISE [employer] - ELISE [id number] / / Screw 3.5x16mm Lck Ft Ti Variax ([id number]) ([employer]q) - [id number] Implanted:Qty: 1 on 02/05/2022 by Jewel Tavarez MD at [facility] IMPLANTS Left: Ankle ELISE [employer] - ELISE [id number] / / [employer] Flat[employer] Driver Relationship Specialty Start Date End Date Nikunj Tipton APRN [address] [place] [address] PCP - General Family Medicine 01/28/22
--- OUTSIDE RECORDS SUMMARY | 2024-06-16 14:46 | XMS_ITS | Encounter Summary ---
Author Organization [facility] Address [address] [place] [address] Care Team Providers Care Autism Specialist Name Role Phone Unavailable Primary Care Provider Unavailabl e Encounter Details Date Type Department Care Team (Late st Contact Info) Description 08/14/2022 Lab Requisition [facility] Pathology & Laboratory Medicine - [facility] [address] [place] [address] Outr Resulting Lab, Provider Social History Tobacco Use Types Packs/Day Years Used Date Smoking Tobacco: Never Assessed Sex and Gender Information Value Date Recorded Sex Assigned at Not on file Legal Sex Male 15:21 EST Gender Identity Not on file Sexual Orientation Not on file documented as of this encounter Plan of Treatment Not on file documented as of this encounter Procedures Procedure Name Priority Date/Time Associated Diagnosis Comments PSA TOTAL, DIAGNOSTIC Routine 08/14/2022 8:18 EST documented in this encounter Results * PSA TOTAL, DIAGNOSTIC (08/14/2022 8:18 EST) PSA 0.4 <=2.5 ng/mL 08/14/2022 22:55 EST [facility] Blood VENOUS BLOOD / Unknown 08/14/2022 8:18 EST 08/14/2022 21:25 EST Narrative [facility] - 08/14/2022 22:55 EST NOTE: Serum PSA concentration should not be interpreted as absolute evidence for the presence or absence of malignant disease. Assayed on Siemens ADVIA Centaur XPT using chemiluminescent technology.??Values obtained by using different assay methods cannot be used interchangeably. us Provider Outr Resulting Lab CHEMISTRY & BLOOD GA S ORDERABLES Final Result [facility] [address] [place] [address] documented in this encounter Visit Diagnoses Not on filedocumented in this encounter
--- OUTSIDE RECORDS SUMMARY | 2024-06-16 14:46 | XMS_ITS | Encounter Summary ---
Author Organization [facility] [place] [address] Care Team Providers Care Construction Secretary Name Role Phone Unknown Primary Care Provider Unavailabl e Encounter Details Date Type Department Care Team (Late st Contact Info) Description 01/27/2022 1:20 PM EDT Ancillary Procedure Radiology Library at [facility] [place] [address] Charly Pedroza MD [facility] [place] [address] Social History Tobacco Use Types Packs/Day Years Used Date Smoking Tobacco: Never Assessed Sex and Gender Information Value Date Recorded Sex Assigned at Not on file Gender Identity Not on file Sexual Orientation Not on file documented as of this encounter Plan of Treatment Not on file documented as of this encounter Procedures Procedure Name Priority Date/Time Associated Diagnosis Comments FILM LIBRARY STORAGE ONLY DX ANKLE Routine 01/27/2022 1:18 PM EDT documented in this encounter Results * Film Library- Storage Only DX Ankle (01/27/2022 1:18 PM EDT) Narrative RAD - 01/27/2022 1:18 PM EDT This exam is auto-finalizing. It's purpose is for storage only. Charly Pedroza MD IMG FILM LIBRARY ORD ERABLES [place], [place] documented in this encounter Visit Diagnoses Not on filedocumented in this encounter Care Teams Construction Secretary Relationship Specialty Start Date End Date Unknown None PCP - General 05/04/21 01/27/22 documented as of this encounter
--- OUTSIDE RECORDS SUMMARY | 2024-06-16 14:46 | XMS_ITS | Encounter Summary ---
Author Organization [facility] [place] [address] Care Team Providers Care Band Attacher Name Role Phone Unknown Primary Care Provider Unavailabl e Encounter Details Date Type Department Care Team (Late st Contact Info) Description 01/27/2022 [place] [address] Susannah Ross MD [facility] [place] [address] Social History Tobacco Use Types Packs/Day Years Used Date Smoking Tobacco: Never Assessed Sex and Gender Information Value Date Recorded Sex Assigned at Not on file Gender Identity Not on file Sexual Orientation Not on file documented as of this encounter Miscellaneous Notes * Telephone Encounter - Susannah Ross MD - 01/27/2022 7:41 PM EDT Telephone Note I spoke to Dr. Garcia today at [facility] regarding Mr. Sterling. Patient is a 31 year old healthy male who was playing softball when he tripped sliding into second base suffering a L bimalleolar equivalent ankle fracture. He was NVI on exam. I recommended Dr. Garcia place Mr. Sterling in a short leg splint with a mold to reduce the medial displacement. I described how to do this and asked they obtain repeat images after and give us a call once these are complete. Ultimately patient will be NWB in splint and may follow up in clinic in the next week to discuss operative management. Provider was agreeable with this plan. documented in this encounter Plan of Treatment Not on file documented as of this encounter Visit Diagnoses Not on filedocumented in this encounter Care Teams Band Attacher Relationship Specialty Start Date End Date Unknown None PCP - General 05/04/21 01/27/22 documented as of this encounter
--- OUTSIDE RECORDS SUMMARY | 2024-06-16 14:46 | XMS_ITS | Encounter Summary ---
Author Organization [facility] [place] [address] Care Team Providers Care Chip Bin Conveyor Tender Name Role Phone Nikunj Tipton APRN Primary Care Provider +1- [phone] Encounter Details Date Type Department Care Team (Latest Contact Info) Description 06/03/2022 Travel Social History Tobacco Use Types Packs/Day Years [...] on filedocumented in this encounter Care Teams Chip Bin Conveyor Tender Relationship Specialty Start Date End Date Nikunj Tipton APRN [address] [place], [place] [address] PCP - General Family Medicine 01/28/22 documented as of this encounter
--- OUTSIDE RECORDS SUMMARY | 2024-06-16 14:46 | XMS_ITS | Encounter Summary ---
Author Organization [facility] Address [facility] [place] [address] Care Team Providers Care Kick Press Setter Name Role Phone Nikunj Tipton APRN Primary Care Provider +1- [phone] Encounter Details Date Type Department Care Team (Late st Contact Info) Description 02/07/2022 Telephone [place] [phone] Paulina Mchugh MD [facility] [place] [address] Social History Tobacco Use Types Packs/Day Years Used Date Smoking Tobacco: Former Cigarettes Smokeless Tobacco: Current Chew Alcohol Use Standard Drinks/Week Comments Yes 0 (1 standard drink = 0.6 oz pur e alcohol) occasionally Sex and Gender Information Value Date Recorded Sex Assigned at Not on file Gender Identity Not on file Sexual Orientation Not on file documented as of this encounter Progress Notes * Paulina Mchugh MD - 02/07/2022 9:58 AM EDT REGIONAL NERVE BLOCK FOLLOW-UP I spoke to patient's via telephone. Peripheral nerve block resolved appropriately. No residualweakness/numbness/decreased sensation. Patient very satisfied with nerve block. Patient's reporting that he has tongue numbness. Advised that this should resolve, but could contact PCP if continuing to have issues. If there are any questions or concerns regarding the nerve block, please do not hesitate to contactthe regional anesthesia team. documented in this encounter Plan of Treatment Not on file documented as of this encounter Visit Diagnoses Not on filedocumented in this encounter Care Teams Kick Press Setter Relationship Specialty Start Date End Date Nikunj Tipton, NICOLA [address] [place] [address] PCP - General Family Medicine 01/28/22 documented as of this encounter
--- OUTSIDE RECORDS SUMMARY | 2024-06-16 14:46 | XMS_ITS | Encounter Summary ---
Author Organization [facility] [place] [address] Care Team Providers Care Information Systems Consultant Name Role Phone Nikunj Tipton APRN Primary Care Provider +1- [phone] Reason for Visit * Reason Comments Follow-up S/P LT ANKLE ORIF DO S 02/05/22 (TOBIAS) SPLINT PROBLEM Encounter Details Date Type Department Care Team (Late st Contact Info) Description 02/07/2022 11:00 AM EDT Office [place] [address] Post-operative state Social History Tobacco Use Types Packs/Day Years Used Date Smoking Tobacco: Former Cigarettes Smokeless Tobacco: Current Chew Alcohol Use Standard Drinks/Week Comments Yes 0 (1 standard drink = 0.6 oz pur e alcohol) occasionally Sex and Gender Information Value Date Recorded Sex Assigned at Not on file Gender Identity Not on file Sexual Orientation Not on file documented as of this encounter Last Filed Vital Signs Vital Sign Reading Time Taken Comments Blood Pressure 123/67 02/07/2022 10:47 AM EDT Pulse 79 02/07/2022 10:47 AM EDT Temperature 36.7 ??C (98 ??F) 02/07/2022 10:47 AM EDT Respiratory Rate - - Oxygen Saturation - - Inhaled Oxygen Concentration - - Weight 113.4 kg (250 lb) 02/07/2022 10:47 AM EDT Height 175.3 cm (5' 9) 02/07/2022 10:47 AM EDT Body Mass Index 36.92 02/07/2022 10:47 AM EDT documented in this encounter Progress Notes * Mehul Triana MD - 02/07/2022 11:00 AM EDT Images from the original note were not included. ORTHOPAEDIC SURGERY CONSULT NOTE ATTENDING: Dr. Tavarez Ever Sterling is a 31 y.o. male who presents to see us in consultation today at the request of No att. providers found. CHIEF COMPLAINT: Left heel and ankle pain in splint s/p left trimalleolar equivalent ankle ORIF HPI: Ever Sterling is a 31-year-old male who underwent a left trimalleolar equivalent ankle ORIF on02/05/[address] Tavarez. His anesthetic ankle block wore off around 1 PM yesterday after which he has been experiencing increasingly severe ankle pain, as well as burning sensation at the heel. Patient states that he feels diffuse ankle bone aching but also notes a poking/burning sensation at his heel. Patient's inspected the splint and feels that there is some degree of indentation of the splint over the site where he is feeling burning. Otherwise, patient is able to wiggle his toes and does not have concern for any issues with blood supply. However she does wonder if the splint istoo tight. Patient presents today for splint evaluation. FOCUSED REVIEW OF SYSTEMS: as above. SOCIAL HISTORY: Social History Tobacco Use Smoking Status Former Smoker ??? Types: Cigarettes Smokeless Tobacco Current User ??? Types: Chew Social History Substance and Sexual Activity Alcohol Use Yes Comment: occasionally MEDICATIONS: ??? ondansetron (Zofran) 4 mg Tablet ??? oxyCODONE (Roxicodone) 5 mg Tablet ??? aspirin EC 81 mg Tablet, Delayed Release (E.C.) ??? acetaminophen (Tylenol) 500 mg Tablet ??? ibuprofen (Advil) 600 mg Tablet There is no height or weight on file to calculate BMI. PHYSICAL EXAM: Gen: NAD, resting comfortably, AOx3 HEENT: NC, AT CV: RRR assessed peripherally Pulm: No incr WOB on RA Skin: Intact Psych: Nl mood and affect Left Lower Extremity Exam: Splint appears c/d/i Skin over heel and medial malleolus appears erythematous Otherwise, no ecchymosis, erythema, or overlying skin changes. Sensation intact to light touch in Saphenous/Sural/LFC/Femoral/MP/LP/T/DP/SP distributions Motor intact EHL/FHL/TA; ankle flexion/extension not assessed due to injury Brisk capillary refill distally 2+ DP/PT pulses ASSESSMENT/RECOMMENDATIONS: 31 y.o. male who presents with Left heel and ankle pain in splint s/p left trimalleolar equivalent ankle ORIF. After taking down the splint, evidence of a pressure point. The LLE was re-splinted in a short leg splint with extra padding at the heel and bony prominences. - Activity- NWB LLE - Follow-up- Outpatient with Dr. Tavarez with x-rays of Left ankle in splint prior to appt - Discuss with Dr. Tavarez I have contacted the referring team and discussed our evaluation and recommendations as listed above. The orthopaedic service will continue to follow this patient. Thank you for the opportunity to assist in their evaluation and treatment. Please page Orthopaedic consults ([phone]) with any questions or concerns. Mehul Triana MD P. [phone] 02/07/22 9:32 AM Future Appointments Date Time Provider Department Center 02/07/2022 11:00 AM ORTHOPAEDICS, [facility] ORTH 3A [facility] 02/20/2022 11:00 AM [facility] DX ROOM 1 MH Xray [facility] Rad 02/20/2022 11:30 AM Jewel Tavarez MD [facility] ORTH [address] [place] [address] documented in this encounter Plan of Treatment Not on file documented as of this encounter Visit Diagnoses Diagnosis Post-operative state Other postprocedural status documented in this encounter Care Teams Information Systems Consultant Relationship Specialty Start Date End Date Nikunj Tipton APRN [address] [place] [address] PCP - General Family Medicine 01/28/22 documented as of this encounter
--- OUTSIDE RECORDS SUMMARY | 2024-06-16 14:46 | XMS_ITS | Encounter Summary ---
Author Organization [facility] [place] [address] Care Team Providers Care Vision Care Associate Name Role Phone Nikunj Tipton APRN Primary Care Provider +1- [phone] Reason for Visit * Reason Onset Date Comments Disability Paperwork 02/21/2022 Encounter Details Date Type Department Care Team (Late st Contact Info) Description 02/21/2022 Telephone [place] [phone] Jewel Tavarez MD [facility] [place] [address] Disability Paperwork Social History Tobacco Use Types Packs/Day Years Used Date Smoking Tobacco: Former Cigarettes Q uit: 2010 Smokeless Tobacco: Current Chew Alcohol Use Standard Drinks/Week Comments Yes 0 (1 standard drink = 0.6 oz pur e alcohol) occasionally Sex and Gender Information Value Date Recorded Sex Assigned at Not on file Gender Identity Not on file Sexual Orientation Not on file documented as of this encounter Miscellaneous Notes * Telephone Encounter - Lida Mireles - 02/22/2022 10:09 AM EDT Faxed/Mailed/MY PORTAL/Pick-up Date: Faxed and mailed to patient Fax Number: Loco Onia- [phone] [facility] [phone] * Telephone Encounter - Lida Mireles - 02/22/2022 9:58 AM EDT Completed by: Lida To provider for review/signature: Out for signature * Telephone Encounter - Lida Mireles - 02/21/2022 9:30 AM EDT Date Received: 02/20/22 Insurance/Disability Company Name: [facility] Release on file/mailed: On file documented in this encounter Plan of Treatment Not on file documented as of this encounter Visit Diagnoses Not on filedocumented in this encounter Care Teams Vision Care Associate Relationship Specialty Start Date End Date Nikunj Tipton, NICOLA [address] [place] [address] PCP - General Family Medicine 01/28/22 documented as of this encounter
--- OUTSIDE RECORDS SUMMARY | 2024-06-16 14:46 | XMS_ITS | Encounter Summary ---
Author Organization [facility] [place] [address] Care Team Providers Care Second Rigger Name Role Phone Nikunj Tipton APRN Primary Care Provider +1- [phone] Reason for Visit * Reason Onset Date Comments Post-op Problem 07/05/2022 Encounter Details Date Type Department Care Team (Late st Contact Info) Description 07/05/2022 [place] [phone] Jewel Tavarez MD [facility] [place] [address] Post-op Problem Social History Tobacco Use Types Packs/Day Years [...] encounter Miscellaneous Notes * Telephone Encounter - Jewell Olivares - 07/05/2022 9:34 AM EST Images from the original note were not included. Received picture from patient and reviewed with Dr. Tavarez. Dr. Tavarez feels that he may be having a reaction to an absorbable suture that did not absorb. He wrote a RX for Bactrim and sent to patient pharmacy. I then called patient and gave him this information. 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 Tavarez. Iasked about his availability to be seen today and he states that he cannot come in to our clinic today as he has to go to work shortly. * Telephone Encounter - Brenda Smalls - 07/05/2022 8:06 AM ESTSummary: Post Op Concern Who is calling? DEANGELO Callahan call back number: [phone] Best time to call back between 8:00 am & 5:00 pm: ANYTIME Can we leave a message? yes When was your procedure? 02/05/2022 Who was your surgeon? TOBAIS What procedure did you have done? 02/05/2022 0730 ORIF ANKLE, LAT. MALLEOLUS, DISTAL FIBULAR FX (WRVU 8.75) - Left MODIFIER VARIAX 2 LOCKING SMALL FRAGMENT ELISE - Left ORIF SYNDESMOSIS, ANKLE (WRVU 8.8) - Left Jewel Tavarez (Primary) Anupam Muniz Michael W [facility] What is the question you would like to ask the clinical care team? Beginning 06/28/2022 ( estimate ) his ankle started hurting. 2 or 3 days ago he noticed that the ankle was red and swollen and very painful to touch. Wearing the brace inside his boot has begun to get very painful. He says it feels mushy on the ankle bone that sticks out on the outside. Your message will be forwarded to the clinical care team for review. documented in this encounter Plan of Treatment Not on file documented as of this encounter Visit Diagnoses Not on filedocumented in this encounter Care Teams Second Rigger Relationship Specialty Start Date End Date Nikunj Tipton APRN [address] [place], [place] [address] [address] [place] [address] PCP - General Family Medicine 01/28/22 documented as of this encounter
--- OUTSIDE RECORDS SUMMARY | 2024-06-16 14:46 | XMS_ITS | Encounter Summary ---
Author Organization [facility] [place] [address] Care Team Providers Care Osteopathy Doctor Name Role Phone Nikunj Tipton APRN Primary Care Provider [phone] Reason for Visit * Auth/Cert Specialty Diagnoses / Procedures Referred By Contac t Referred To Contact Diagnoses Other fracture of upper and lower end of left fibula, initial encounter for closed fracture left distal fibula fracture Procedures PRO OPEN TX DISTAL FIBULAR FRACTURE LAT MALLEOLUS ORIF ANKLE, LAT. MALLEOLUS, DISTAL FIBULAR FX (WRVU 8.75) MODIFIER VARIAX 2 LOCKING SMALL FRAGMENT Jewel Cristina MD [facility] [place] [address] [facility] Referral ID Status Reason Start Date Expiration Date Visits Re quested Visits Authorized [id number] 1 1 Encounter Details Date Type Department Care Team (Late st Contact Info) Description 02/05/2022 7:32 AM EDT Anesthesia Event [place] [address] Nash Doty MD [facility] [place] [address] Paulina Mchugh MD [facility] [place] [address] Anesthesia Record Procedure Summary Procedure Name Responsible Anesthesiologist Anesthesia Start Time Anesthesia Stop Time ORIF ANKLE, LAT. MALLEOLUS, DISTAL FIBULAR FX (WRVU 8.75) (Left: Ankle) Nash Doty MD 02/05/22 0732 02/05/22 1014 Events Date Time Event Comment 02/05/2022 0647 0732 AN Verify 0732 Start 0732 An Start Data 0740 An Induction 0750 An Intubation 0754 Anesthesia Ready 0816 An Tourn Inflated 250 mmHg 0840 Break/Relief In I assumed ca re for Break Relief before which we: 1. Identified the patient 2. Identified the responsible provider(s) 3. Reviewed the pertinent medical history 4. Discussed the surgical plan and course 5. Reviewed intra-op anesthesia management and issues during anesthesia 6. Set expectations for the relief (and/or post-procedure) period 7. Allowed opportunity for questions and acknowledgement of understanding Nell Russell CRNA 0852 Break/Relief Out 0913 An Tourn Deflated 0923 Bite Block In 0959 Extubation/LMA Out 1002 an stop data 1013 Recovery or ICU Handoff Elizabeth ent care was transferred to the destination unit staff after review of the patient's medical history, current anesthetic/surgical status and plan, according to the Provider Handoff Checklist. 1014 Stop Meds Name Total Midazolam 2 mg fentaNYL 100 mcg Propofol 300 mg Rocuronium 70 mg Dexamethasone 10 mg ceFAZolin 2 g Propofol INF 238.14 mg ROpivacaine 0.5% 30 mL Albuterol Inhaler 30 puff Ondansetron 8 mg Sugammadex 200 mg Lactated Ringers 1,200 mL * Agents Name O2 Air N2O Sevoflurane (et) * Blood No blood administrations on file. Lines, Drains, and Airways Type Details Placement Removal Incision 02/05/22; Left, late ral; ankle 02/05/22 0000 by Ashley Mercer, RN (RETIRED) Peripheral IV Line - Single Lumen 02/05/22; 0627; cephalic vein (lateral side of arm), left; ymni-cpe-lgvoer catheter system; Anatomical Landmarks; 20 gauge, 1 in length; wbarlow; intradermal injection; 02/05/22; 1145 02/05/22 0627 by Santosh Bruno RN 02/05/22 1145 by Mary Sandoval, RN ETT Mask Ventilation: Difficult (3); ETT Type: Oral, Cuffed; ETT Size: 7.5 mm; Indirect: Video; Notes: Asleep, Pre-O2, Stylette; Attempts: 2; Laryngoscopy Grade: 1; Secured at Teeth: 25 cm; Inserted by: MD Radha; Removal Date: 02/05/22; Removal Time: 95802/05/22 0750 by Ricarda Garcia MD 02/05/22 0959 by Ricarda Garcia MD NG/OG Tube 02/05/22; 0754; orogastric; mouth; 02/05/22; 92202/05/22 0754 by Ricarda Garcia MD 02/05/22 09 by Ricarda Garcia MD documented in this encounter Social History Tobacco Use Types Packs/Day Years Used Date Smoking Tobacco: Former Cigarettes Smokeless Tobacco: Current Chew Alcohol Use Standard Drinks/Week Comments Yes 0 (1 standard drink = 0.6 oz pur e alcohol) occasionally Sex and Gender Information Value Date Recorded Sex Assigned at Not on file Gender Identity Not on file Sexual Orientation Not on file documented as of this encounter OR Notes * Anesthesia Postprocedure Evaluation - Nash Doty MD - 02/05/2022 10:14 AM EDT Department of Anesthesiology Post-procedure Note Patient: Ever Sterling Procedure Summary Date: 02/05/22 Room / Location: [facility] MA[facility] OR Anesthesia Start: 731 Anesthesia Stop: 1013 Procedures: ORIF ANKLE, LAT. MALLEOLUS, DISTAL FIBULAR FX (WRVU 8.75) (Left Ankle) MODIFIER VARIAX 2 LOCKING SMALL FRAGMENT ELISE (Left Ankle) Diagnosis: Closed fracture of distal end of left fibula, initial encounter (left distal fibula fracture) Surgeons: Jewel Tavarez MD Responsible Provider: Nash Doty MD Anesthesia Type: general ASA Status: 2 All Anesthesia Providers: Anesthesiologist: Nash Doty MD Structural Metal Fabricator Apprentice: Ricarda Garcia MD Vitals Value Taken Time BP Temp Pulse Resp SpO2 Pain Level Patient Location: PACU/[facility] Level of Consciousness: Awake and Alert Pain Management: Satisfactory Analgesia PONV: None Cardiovascular Status: Hemodynamically Stable Respiratory Status: Supplemental O2 (NC or FM) and Stable Respiratory Status Postoperative Fluid Status: Intravascular EUvolemia Possible Anesthetic Complications: NONE apparent at time of evaluation Final Primary Anesthesia Type: General (The anesthetic type performed was the same as planned.) Comments: Receiving Duoneb in Same Day due to sounding wheezy prior to and upon extubation. Originally disoriented/slow to emerge from anesthesia. Verbal reassurance only for reorientation; no pharmacologic management required. Currently resting comfortably in Same Day. Ricarda Garcia MD * Anesthesia Procedure Notes - Mega Qiu MD - 02/05/2022 8:12 AM EDT Associated Order(s): Anesthesia Block Anesthesia Block Date/Time: 02/05/2022 7:01 AM Performed by: Mega Qiu MD Authorized by: Yovani Nogueira MD Start Time: 02/05/2022 7:01 AM End Time: 02/05/2022 7:11 AM Patient Location: Block Room Indication: Post-op Pain Control Post-op pain management at the request of surgeon. Block Type: Adductor canal block sciatic/ popliteal nerve block Laterality: Left Position: Supine Prep: Chlorhexidine, patient draped and mask, cap, sterile gloves, hand hygeine Skin Anesthetic: Skin Anesthetic: Lidocaine 1% dose: 5 Block Technique: SonoPlex 21 10 cm Ultrasound Guided: YES and in-plane Ultrasound Image Saved Ultrasound guidance was used to identify the targeted neuronal structure. Ultrasound was also used to identify needle position and to identify tissue (bone, muscle, and blood vessels) to prevent inadvertent intraneural or intravascular needle placement and injection. The spread of local anesthetic was confirmed with live ultrasound imaging. Single-Shot: Single-shot Local Anesthetic Volume(s) Injected for Nerve Block: ROpivacaine 0.5% - Perineural 20 mL - 02/05/2022 7:05:00 AM 10 mL - 02/05/2022 7:10:00 AM Nerve Sensory/MotorTest: Events: no complications Staff: Resident/RETAIL SERVICE LEAD MERCHANDISER:: Mega Qiu MD Fellow:: Paulina Mchugh MD Attending Physician:: Yovani Nogueira MD Notes: Patient positioned appropriately. Skin overlying popliteal fossa and AC sterilized. Nerve target identified via MELARA. Skin anesthetized with 1% lidocaine and needle advanced to target. 20ml 0.5% Ropivacaine injected into appropriate fascial plane. Needle removed. Saphenous nerve then identified via US. Skin anesthetized and needle advance to target with 10ml 0.5% Ropivacaine injected. Patient tolerated the procedure well. No complications. * Anesthesia Preprocedure Evaluation - Nash Doty MD - 02/01/2022 1:09 PM EDT Pre-Anesthesia Evaluation for: Ever Sterling a 31 y.o. male. Procedure(s): ORIF ANKLE, LAT. MALLEOLUS, DISTAL FIBULAR FX (WRVU 8.75) MODIFIER VARIAX 2 LOCKING SMALL FRAGMENT ELISE There are no problems to display for this patient. No past medical history on file. No past surgical history on file. Social History Tobacco Use ??? Smoking status: Former Smoker Types: Cigarettes ??? Smokeless tobacco: Current User Types: Chew Substance Use Topics ??? Alcohol use: Yes Comment: occasionally Social History Substance and Sexual Activity Drug Use Never Allergies Allergen Reactions ??? Tramadol Nausea And Vomiting Medications: MAR and/or home medications have been reviewed. Physical Exam: Preprocedure Vitals Current as of 02/01/22 1309 No BP, pulse, respiration, SpO2, or temperature recorded. Height: 175.3 cm (5' 9) (01/28/22) Weight: 113.4 kg (250 lb) (01/28/22) BMI: 36.91 IBW: 70.7 kg (155 lb 15.1 oz) Airway Assessment: Mallampati: I TM distance: >3 FB Neck ROM: full Cardiovascular Assessment: Rhythm: regular Pulmonary Assessment: breath sounds clear to auscultation Dental Assessment: Misc Assessment: Patient is wearing No contact(s). IV access: Peripheral line Last Filed Perioperative Cognitive Screening None Anesthesia Plan: ASA 2 general, Preliminary Note 31 y.o., 113 kg otherwise healthy male with left distal fibula fx presenting for ORIF lateral malleolus Allergies: -- Tramadol -- Nausea And Vomiting Anesthetic hx: No reported prior complications with anesthesia Airway hx: no records Anesthetic Plan: preop pop saph, GETA, std monitors Informed Consent: Anesthesia Screening documented in this encounter Plan of Treatment Not on file documented as of this encounter Procedures Procedure Name Priority Date/Time Associated Diagnosis Comments ANESTHESIA BLOCK Routine 02/05/2022 7:01 AM EDT documented in this encounter Results * Anesthesia Block (02/05/2022 7:01 AM EDT) Narrative Yovani Nogueira MD - 02/05/2022 7:01 AM EDT Mega Qiu MD ? 02/05/2022 ??8:19 AM Anesthesia Block Date/Time: 02/05/2022 7:01 AM Performed by: Mega Qiu MD Authorized by: Yovani Nogueira MD Start Time: ??02/05/2022 7:01 AM End Time: ??02/05/2022 7:11 AM Patient Location: ??Block Room Indication: ??Post-op Pain Control Post-op pain management at the request of surgeon. ?? Block Type: ??Adductor canal block sciatic/ popliteal nerve block Laterality: ??Left Position: ??Supine Prep: ??Chlorhexidine, patient draped and mask, cap, sterile gloves, hand hygeine Skin Anesthetic: ??Skin Anesthetic: ??Lidocaine 1% ??dose: ??5 Block Technique: ?? SonoPlex ?? 21 ?? 10 cm ??Ultrasound Guided: ??YES and in-plane ??Ultrasound Image Saved ?Ultrasound guidance was used to identify the targeted neuronal structure. Ultrasound was also used to identify needle position and to identify tissue (bone, muscle, and blood vessels) to prevent inadvertent intraneural or intravascular needle placement and injection. The spread of local anesthetic was confirmed with live ultrasound imaging. ?Single-Shot: ??Single-shot Local Anesthetic Volume(s) Injected for Nerve Block: ?? ROpivacaine 0.5% - Perineural 20 mL - 02/05/2022 7:05:00 AM 10 mL - 02/05/2022 7:10:00 AM Nerve Sensory/MotorTest: ??Events: no complications ?? Staff: ??Resident/RETAIL SERVICE LEAD MERCHANDISER:: ??Mega Qiu MD ??Fellow:: ??Paulina Mchugh MD ??Attending Physician:: ??Yovani Nogueira MD Notes: ?? Patient positioned appropriately. Skin overlying popliteal fossa and AC sterilized. Nerve target identified via MELARA. Skin anesthetized with 1% lidocaine and needle advanced to target. 20ml 0.5% Ropivacaine injected into appropriate fascial plane. Needle removed. Saphenous nerve then identified via US. Skin anesthetized and needle advance to target with 10ml 0.5% Ropivacaine injected. Patient tolerated the procedure well. No complications. Yovani Nogueira MD [employer]ICATION[employer] PROFESSOR [facility] documented in this encounter Visit Diagnoses Not on filedocumented in this encounter Administered Medications Inactive Administered Medications - up to 3 most recent administrations Medication Order MAR Action Action Date Dose Rate Site albuteroL 90 mcg/actuation inhaler Inhalation, PRN, Starting on Fri02/05/22 at 0752, Until Fri02/05/22 at 1014, Anesthesia Intra-op, Routine Given 02/05/2022 9:17 AM EDT 10 puffs Given 02/05/2022 8:04 AM EDT 10 puffs Given 02/05/2022 7:52 AM EDT 10 puffs ceFAZolin (Ancef) 1 g in dextrose 5% 50 mL infusion Intravenous, PRN, Starting on Fri02/05/22 at 0815, Until Fri02/05/22 at 1014, Administer over 30 Minutes, Anesthesia Intra-op Given 02/05/2022 8:15 AM EDT 2 g dexAMETHasone (Decadron) injection Intravenous, PRN, Starting on Fri02/05/22 at 0830, Until Fri02/05/22 at 1014, Anesthesia Intra-op, Routine Given 02/05/2022 8:53 AM EDT 4 mg Given 02/05/2022 8:30 AM EDT 6 mg fentaNYL (pf) (50 mcg/mL) multi-dose injection Intravenous, PRN, Starting on Fri02/05/22 at 0740, Until Fri02/05/22 at 1014, Anesthesia Intra-op, Routine Given 02/05/2022 7:40 AM EDT 100 mcg lactated ringers infusion Intravenous, CONTINUOUS PRN, Starting on Fri02/05/22 at 0732, Until Fri02/05/22 at 1014, Anesthesia Intra-op New Bag 02/05/2022 8:37 AM EDT New Bag 02/05/2022 7:32 AM EDT midazolam (pf) (Versed) (1 mg/mL) multi-dose injection Intravenous, PRN, Starting on Fri02/05/22 at 0734, Until Fri02/05/22 at 1014, Anesthesia Intra-op, Routine Given 02/05/2022 7:34 AM EDT 2 mg ondansetron (pf) (Zofran) (2 mg/mL) injection Intravenous, PRN, Starting on Fri02/05/22 at 0914, Until Fri02/05/22 at 1014, Anesthesia Intra-op, Routine Given 02/05/2022 9:14 AM EDT 8 mg propofoL (Diprivan) (10 mg/mL) infusion Intravenous, CONTINUOUS PRN, Starting on Fri02/05/22 at 0810, Until Fri02/05/22 at 1014, Anesthesia Intra-op, Routine New Bag 02/05/2022 8:10 AM EDT 30 mcg/kg/min 20.412 mL/hr propofoL (Diprivan) 10 mg/mL bolus injection (Anesthesia) Intravenous, PRN, Starting on Fri02/05/22 at 0740, Until Fri02/05/22 at 1014, Anesthesia Intra-op Given 02/05/2022 7:40 AM EDT 300 mg rocuronium (Zemuron) (10 mg/mL) multi-dose injection Intravenous, PRN, Starting on Fri02/05/22 at 0742, Until Fri02/05/22 at 1014, Anesthesia Intra-op, Routine Given 02/05/2022 8:37 AM EDT 20 mg Given 02/05/2022 7:42 AM EDT 50 mg ROpivacaine (PF) (Naropin) 0.5% (5 mg/mL) injection Perineural, Starting on Fri02/05/22 at 0705, Until 7/5/22 at 0710, Anesthesia Intra-op, Routine Given 02/05/2022 7:10 AM EDT 10 mLs Given 02/05/2022 7:05 AM EDT 20 mLs sugammadex (Bridion) 100 mg/mL injection Intravenous, PRN, Starting on Fri02/05/22 at 0917, Until Fri02/05/22 at 1014, Anesthesia Intra-op, Routine Given 02/05/2022 9:17 AM EDT 200 mg documented in this encounter Care Teams Osteopathy Doctor Relationship Specialty Start Date End Date Nikunj Tipton, NICOLA [address] [place] [address] PCP - General Family Medicine 01/28/22 documented as of this encounter
--- OUTSIDE RECORDS SUMMARY | 2024-06-16 14:46 | XMS_ITS | Encounter Summary ---
Author Organization [facility] [place] [address] Care Team Providers Care Tank Insulator Rubber Name Role Phone Nikunj Tipton APRN Primary Care Provider [phone]- [phone] Encounter Details Date Type Department Care Team (Latest Contact Info) Description 09/30/2022 Travel Social History Tobacco Use Types Packs/Day [...] on filedocumented in this encounter Care Teams Tank Insulator Rubber Relationship Specialty Start Date End Date Nikunj Tipton APRN [address] [place], [place] [id number] PCP - General Family Medicine 01/28/22 documented as of this encounter
--- OUTSIDE RECORDS SUMMARY | 2024-06-16 14:46 | XMS_ITS | Encounter Summary ---
Author Organization [facility] [place] [address] Care Team Providers Care Developer Automatic Name Role Phone Nikunj Tipton APRN Primary Care Provider [phone]- [phone] Reason for Visit * Auth/Cert Specialty Diagnoses / Procedures Referred By Contac t Referred To Contact Diagnoses Other fracture of upper and lower end of left fibula, initial encounter for closed fracture left distal fibula fracture Procedures PRO OPEN TX DISTAL FIBULAR FRACTURE LAT MALLEOLUS ORIF ANKLE, LAT. MALLEOLUS, DISTAL FIBULAR FX (WRVU 8.75) MODIFIER VARIAX 2 LOCKING SMALL FRAGMENT ELISE Jewel Tavarez MD [facility] [place] [address] [facility] Referral ID Status Reason Start Date Expiration Date Visits Re quested Visits Authorized [id number] 1 1 Encounter Details Date Type Department Care Team (Late st Contact Info) Description 02/05/2022 7:30 AM EDT - 02/05/2022 10:15 AM EDT [place] [address] Jewel Tavarez MD [facility] [place] [address] ORIF ANKLE, LAT. MALLEOLUS, DISTAL FIBULAR FX (WRVU 8.75) Social History Tobacco Use Types Packs/Day Years [...] Sign Reading Time Taken Comments Blood Pressure 144/83 02/05/2022 10:15 AM EDT Pulse 76 02/05/2022 7:27 AM EDT Temperature 36.5 ??C (97.7 ??F) 02/05/2022 10:06 AM E DT Respiratory Rate 18 02/05/2022 10:15 AM EDT Oxygen Saturation 96% 02/05/2022 10:15 AM EDT Inhaled Oxygen Concentration - - Weight - - Height - - Body Mass Index - - documented in this encounter Discharge Instructions * Discharge Instructions* Mary Sandoval RN - 02/05/2022 10:50 AM EDT SAME DAY PROGRAM POST-OPERATIVE INSTRUCTIONS What to Expect After a Nerve Block Prevent pain as the nerve block wears off. The nerve block you had to prevent pain during a procedure, will wear off in 12- 48 hours. Once the block starts wearing off, it goes fast - often gone in 60 minutes. If you will need pain relief after the block wears off, your surgeon will prescribe pain medicine. IMPORTANT: Start taking pain medicine before the nerve block wears off. Eat something before taking the pain medicine to prevent upset stomach. If it's not mealtime, eating crackers or a light snack will help. Nerve blocks sometimes wear off during the night. Take pain medicine before going to sleep, so you don't wake up in pain. A nerve block may create strange feelings in the blocked body part. Nerves control movement, pain, and normal sensations. When they are blocked to prevent pain, you may have feelings in the blocked area of: Weakness Numbness Tingling Heaviness A feeling that your arm or leg has ???fallen asleep?? Just to repeat, the block can last 12-48 hours depending on the medicines used. Usually weakness wears off first, followed by a numb or tingly sensation. Pain can return unless you take pain medicines before the block wears off. If you had a shoulder block, you may notice these other signs: Mild shortness of breath A hoarse voice Blurry vision Eye pupils not equal in size Drooping of your face on the same side as the nerve block These are common side effects after a shoulder nerve block. They should go away within 12 hours. *IMPORTANT: If these signs do not go away in 24 hours, please call the Anesthesiology Department: [phone] Shortness of breath: If you have severe shortness of breath that seems to go on and on, please go to the nearest ER (emergency room). If a nerve block lasts longer than 48 hours, take action. If the nerve block does not wear off within 48 hours, please call the Anesthesiology Department: [phone] Protect the part of your body that is numb. Because a nerve block stops pain, pressure, or feeling in your blocked body part, you might be moreat risk for injury. For example, you could burn your arm or leg without knowing it right away. Use these tips to protect your limb while it's numb: While you are awake, try to change positions of your arm or leg often. This keeps you from putting too much pressure on a limb for a long time. While sleeping, use pillows around the limb to stop too much pressure on it for too long. If you have a cast or a tight dressing, check the color of your fingers or toes every few hours. Ifthey have a strange color, call your doctor. If you have a sling after an arm or hand block, wear it all the time until feeling returns to your arm or hand. The sling keeps you in the right position. If you do not have a sling, look at the position of the numb arm often, to make sure it's safe. Ask your family or support person to help you stay aware and use these tips. Questions? Please call the Anesthesiology Department with concerns or questions: [phone] After hours: Call the hospital tube operator and ask for the anesthesiologist (sid wade) corporate relations manager: [phone] Updated: 06/11/21 * Patient Instructions* Anupam Muniz MD - 02/05/2022 6:12 AM EDT Orthopaedic Surgery Discharge Instructions PROCEDURE: Open reduction and internal fixation of the left ankle MEDICATION: If you need a renewal of your pain medication, please contact the clinic at [phone]. PRESCRIPTION RENEWAL REQUEST CAN TAKE UP TO 3 DAYS TO PROCESS SO PLEASE PLAN ACCORDINGLY. Some narcotic pain medications can not be called into your pharmacy and require the prescription to be picked up or mailed to your pharmacy. You have been prescribed a pain medicine (oxycodon). You may take 1-2 pills every 4-6 hours as needed for pain. Your need for this medication should decrease over time. The pain medication you are prescribed can cause constipation, so increase intake of fluids and fiber while taking them. You should also take an [id number] stool softener, colace or senna, to facilitate a bowel movement. You may take Tylenol (acetaminophen) 1000 mg every 8 hours until your pain is well-controlled. After that you can take Tylenol as needed per package insert. Do not take more than 3,000 mg of Tylenol (acetaminophen) in 24 hours. You can alternate Tylenol and Ibuprofen as long as you are having pain as this will limit the amount of the above pain medications needed. Please use the appropriate dosages as described on the package insert. ANTICOAGULATION: Aspirin - You are being discharged on enteric-coated Aspirin 81mg by mouth twice aday. Continue this for 30 days from surgery. After your dose on 03/07 stop the Aspirin, unless you are told otherwise by your Orthopedic surgeon. Take this medication with food or large amounts (240 mL) of water or milk to minimize GI irritation. ACTIVITY: 1. You are Non-weight bearing in the left lower extremity. 2. Remember to keep your left lower extremity elevated as much as possible to decrease swelling andcontrol pain. 3. Remember to use a walker or crutches at all times for balance and protection. DIET: Eat a normal diet, with adequate amounts of protein and fiber. WOUND CARE: 1. Sutures out at your follow up 2. Leave the operative dressing in place until follow-up. SHOWER/BATH: Keep your cast/splint clean and dry. It is easiest to sponge bathe, but if you must bathe, protect the cast/splint with a plastic bag high above the cast or splint and secure with adhesive tape. CAST/SPLINT CARE Keep the cast or splint in place until your follow-up with Orthopaedics. Keep the cast/splint cleanand dry. It is easiest to sponge bathe, but if you must bathe, protect the cast/splint with a plastic bag high above the cast or splint and secure with adhesive tape. Do not submerge the cast in water at anytime. If the cast accidently gets wet, call the office immediately to have it replaced. A wet cast can cause severe skin and wound problems. CALL YOUR SURGEON, IF YOU HAVE: Fevers greater than 101.5* Fahrenheit Chills or night sweats Nausea or vomiting Wound redness or discharge Numbness or tingling in your hands or feet Problems with the cast/splint or dressing Any questions or concerns FOLLOW-UP APPOINTMENTS: 1. [place] [facility] [place] in Future Appointment and Orders. Future Appointments Date Time Provider Department Center 02/20/2022 11:00 AM [facility] DX ROOM 1 [facility] 02/20/2022 11:30 AM Jewel Tavarez MD [facility] [place] [facility] [place] If you have questions or concerns: Friday through Friday, 8 AM - 5 PM, please call Jewel Tavarez MD, MD's office at . If it is after 5 PM or on the weekend, please call and ask to speak with the Orthopedic resident on-call. documented in this encounter Medications at Time of Discharge Medication Sig Dispensed Refills Start Date End Date acetaminophen (Tylenol) 500 mg Tablet Take 1,000 mg by mouth every 6 hours as needed for Pain. aspirin EC 81 mg Tablet, Delayed Release (E.C.) Take 1 tablet by mouth 2 times daily for 30 days. 60 tablet 02/05/2022 03/07/2022 ondansetron (Zofran) 4 mg Tablet Take 1 tablet by mouth every 8 hours as needed for Nausea. 20 tablet 02/05/2022 04/03/2022 oxyCODONE (Roxicodone) 5 mg Tablet Take 1 tablet by mouth every 4 hours as needed for Pain. 15 tablet 02/05/2022 02/20/2022 ibuprofen (Advil) 600 mg Tablet Take 600 mg by mouth every 6 hours as needed for Pain. 04/03/2022 documented as of this encounter Progress Notes * Mary Sandoval RN - 02/05/2022 11:46 AM EDT Patient discharge to home. IV removed, site benign. RN discussed pain management with patient, paintolerable. Patient has all belongings and supplies needed. Patient received After Visit Summary andany prescriptions, or was directed to pick them up at pharmacy if applicable. These were reviewed, patient verbalizes understanding of AVS. All questions answered. Patient encouraged to call with questions or concerns. Patient discharged to home with family via wheelchair to east entrance. documented in this encounter H&P Notes * Anupam Muniz MD - 02/05/2022 6:06 AM EDT PRE-OPERATIVE HISTORY AND PHYSICAL for ADMISSION, OBSERVATION OR PROCEDURE Date of : 1990 Age: 31 y.o. PCP: Nikunj Tipton APRN Presenting Diagnosis/Chief Complaint: L ankle fracture History of Present Illness: Ever Sterling is a 31 y.o. male who presents for pre-operative examination. Please see Dr. Tavarez's note for full details of the patient's specific problem. Patient denies any recent change in health,no recent illness. No CP, SOB, fevers, chills. PMHx: There is no problem list on file for this patient. No past medical history on file. No past surgical history on file. Home Medications: Medications Prior to Admission Medication Sig Dispense Refill Last Dose ??? oxyCODONE 5 mg Capsule Take 5 mg by mouth every 4 hours as needed. 02/01/2022 at Unknown time ??? ondansetron ODT (Zofran-ODT) 4 mg Tablet, Rapid Dissolve Take 4 mg by mouth every 8 hours as needed for Nausea. 02/01/2022 at Unknown time ??? acetaminophen (Tylenol) 500 mg Tablet Take 1,000 mg by mouth every 6 hours as needed for Pain. 02/05/2022 at Unknown time ??? ibuprofen (Advil) 600 mg Tablet Take 600 mg by mouth every 6 hours as needed for Pain. 02/05/2022t Unknown time ??? oxyCODONE (Roxicodone) 5 mg Tablet Take 1 tablet by mouth every 4 hours as needed for Pain. 15 tablet 0 02/01/2022 at Unknown time ??? ondansetron (Zofran) 4 mg Tablet Take 1 tablet by mouth every 8 hours as needed for Nausea. 20 tablet 0 02/01/2022 at Unknown time Allergies: Allergies Allergen Reactions ??? Tramadol Nausea And Vomiting Family History: Non contributory Family History Problem Relation Age of Onset ??? Diabetes Neg Hx Review of Systems: as per HPI Physical Exam: VITALS: Temperature Temp: 36.2 ??C (97.2 ??F) Heart Rate Heart Rate: 67 Blood Pressure BP: 137/68 Respiratory Rate Resp: 16 SpO2 SpO2: 97 % No intake/output data recorded. General: alert, appears stated age and cooperative Pulmonary: equal, clear breath sounds bilaterally and no crepitus Cardiovascular: Regular rate and rhythm Assessment and Plan: 31 y.o. male with the above problem, plan to proceed to OR with Dr. Tavarez for ORIF L ankle fracture. Anupam Muniz MD Associated attestation - Jewel Tavarez MD - 02/05/2022 10:45 AM EDT The patient's history and physical exam have been reviewed and completed. There has been no interval change from that of the pre-operative history and physical exam done within the last 30 days. We re reviewed the risks and benefits of surgery. Risks include but are not limited to pain, infection, bleeding, damage to surrounding tissue, need for further surgery, malunion, nonunion, failure to heal, deep vein thrombosis, pulmonary embolism, and . Benefits of surgery would be improved reduction, maintained reduction, ankle stability, decreasing development of posttraumatic arthritis, earlyrange of motion and return to function.. He understand the treatment options and would like to proceed with surgery. Jewel Tavarez MD Orthopaedic Surgery documented in this encounter Miscellaneous Notes * Brief Op Note - Anupam Muniz MD - 02/05/2022 10:03 AM EDT Brief Operative Note Patient Name: Ever Sterling : [id number] MR#: [id number] Case Date: 02/05/2022 Surgeon: Surgeon(s) and Role: * Jewel Tavarez MD - Primary * Anupam Muniz MD - Resident * Bahman Klein MD - Resident Dionandrea GuevaraGagan ( MS4) Preoperative diagnosis: left distal fibula fracture Postoperative diagnosis: left distal fibula fracture Procedure(s) (LRB): ORIF ANKLE, LAT. MALLEOLUS, DISTAL FIBULAR FX (WRVU 8.75) (Left) MODIFIER VARIAX 2 LOCKING SMALL FRAGMENT ELISE (Left) Anesthesia: General regional Findings: 1. Hanson C distal fibula fracture, syndesdomtic injury s/p ORIF Complications: None Estimated Blood Loss: 50 mL* No values recorded between 02/05/2022 8:17 AM and 02/05/2022 9:49 AM * Specimens removed during surgery: None Fluids: Intraprocedure Crystalloid Total Intake Lactated Ringers 1200.00 mL Total Intake 1200 mL Output Blood Loss 50 mL Other Output 50 mL Total Output 100 mL Net Net Volume 1100 mL PRBCs: none (See Anesthesia Record/Report for Other Blood Products) Urine Output: (no urine output recorded) Drains: None Disposition: awakened from anesthesia, extubated and taken to the recovery room in a stable condition, having suffered no apparent untoward event. Condition: doing well without problems (Please see the Surgical Encounter Summary for any Implant and Specimen details pertinent to this patient.) Surgical Infection Prevention Bundle Used? N/A Anupam Muniz MD * Op Note - Jewel Tavarez MD - 02/05/2022 8:17 AM EDT [facility] [place] Patient Name: Ever Sterling : [id number] MR#: [id number] Case Date: 02/05/2022 Surgeon: Surgeon(s) and Role: * Jewel Tavarez MD - Primary * Anupam Muniz MD - Resident * Bahman Klein MD - Resident Preoperative diagnosis: 1) left distal fibula fracture, trimalleolar equivalent ankle fracture 2) Left syndesmosis injury Postoperative diagnosis: 1) left distal fibula fracture, trimalleolar equivalent ankle fracture 2) Left syndesmosis injury Procedure(s) (LRB): ORIF ANKLE, LAT. MALLEOLUS, DISTAL FIBULAR FX (WRVU 8.75) (Left) MODIFIER VARIAX 2 LOCKING SMALL FRAGMENT ELISE (Left) ORIF SYNDESMOSIS, ANKLE (WRVU 8.8) (Left) Findings: hanson C spiral distal fibula fracture, medial clear space widening. ORIF with 1/3 tubularplate, syndesmosis fixation with arthrex tight rope. Anesthesia: General Estimated Blood Loss: 50 mL Specimens removed during surgery: None Drains: * No LDAs found * Surgical Closure: Primary Closure - skin incision is completely closed without any wires, ruthie, drains or other devices Disposition: awakened from anesthesia, extubated and taken to the recovery room in a stable condition, having suffered no apparent untoward event. Condition: doing well without problems (Please see the Surgical Encounter Summary for any Implant and Specimen details pertinent to this patient.) HPI/Surgical Indications: This is a 31 y.o. male who fell while playing soft ball sustaining a leftankle injury. distal fibula fracture with a widened syndesmosis and medial clear space widening representing an unstable ankle fracture. He is indicated for open reduction internal fixation. We discussed the risks and benefits of operative and nonoperative treatment options. Risks of surgery include but are not limited to pain, infection, bleeding, damage to surrounding tissue, need for further surgery, malunion, nonunion, failure to heal, deep vein thrombosis, pulmonary embolism, and . Benefits of surgery would be improved reduction, maintained reduction, ankle stability, decreasing development of posttraumatic arthritis, early range of motion and return to function.. He understand the treatment options and would like to proceed with surgery. Procedure Description: The patient was brought to the operating room and identified. The patient underwent induction of general anesthesia and was transferred to a radiolucent diving board operating table in a supine position. All bony prominences and pressure points were padded appropriately. The patient received prophylactic antibiotics within 30 minutes of incision. A thigh tourniquet was placed on his left leg. The left lower extremity was then prepped and drapedin sterile fashion. After a timeout was performed, the operative leg was exsanguinated and the tourniquet was inflated to 250 mmHg. A 10cm posterior lateral approach was made to the distal fibula. The dissection was taken sharply through skin and subcutaneous tissue. Venous bleeding was ligated with electrocautery. Care was taken not to injure the superficial peroneal nerve. This was not encountered during the approach. The fascia to the peroneal muscle compartment was incised. The peroneal muscles and tendons were retracted posteriorly. The fracture was then encountered from the posterior lat eral approach. The fracture site was cleaned and debrided of any fracture hematoma. The fracture was reduced with a small tenaculum and held with provisional K wire. A Airsynergy one third tubular platewas then positioned direct lateral lateral for the distal fibula to function as an antiglide plate.The plate was positioned and a 3.5 mm cortical screw was placed at the apex of the fracture to buttress the fracture. A lag screw was then placed through the plate. This was a 2.7 mm cortical screws placed by lag by technique. Two proximal 3.5 mm cortical screws were placed in the fibular shaft and2x 3.5 mm locking screws were placed distally. There was a thin posterior butterfly fragment that was displaced. The fragment was too narrow for any screw fixation therefore the piece was reduced andgathered and held with a 0 Vicryl cerclage suture wrapped around the plate. He has a syndesmotic injury with a Hanson C distal fibula fracture and a widened medial clear space. He also has an avulsion posterior mall fracture representing a trimalleolar equivalent ankle fracture. With the distal fibula anatomically reduced, the syndesmosis was reduced on fluoroscopy. Therefore an Arthrex tight ropewas used for syndesmotic fixation. This was placed through the plate. The pathway for the tight rope was drilled across the fibula and tibia. Tight rope was then inserted and deployed and the washer was manually tightened down with the ankle in a dorsiflexed position. Fluoroscopic imaging showed satisfactory reduction of the ankle mortise and safe placement of all hardware. External rotation stress test showed a stable ankle mortise. The tourniquet was then taken down and hemostasis was achieved with electrocautery. The wound was irrigated and closed with 2-0 Vicryl and 3-0 nylon. Dressings were applied with Steri-Strips, Xeroform, 4 x 4's, ABD pads, webril, and a short leg splint. He was awakened and extubated in the operating room and taken to the recovery room in stable condition. All counts were correct there were no complications the patient appeared to tolerate the procedure well. Postoperative plan: The patient will be nonweightbearing to the left lower extremity. He will be maintained in a short leg splint. He will receive less than 24 hours of perioperative antibiotics. HE will be maintained on routine DVT prophylaxis. He will follow-up in the clinic in 2 weeks with xraysof the left ankle out of the splint. Surgical Infection Prevention Bundle Used? No Attestation: Case Date: 02/05/2022 I was present and I participated during the entire procedure (does not need to include opening and closing). Jewel Tavarez MD 02/05/2022 documented in this encounter Plan of Treatment Not on file documented as of this encounter Procedures Procedure Name Priority Date/Time Associated Diagnosis Comments ORIF SYNDESMOSIS, ANKLE Routine 02/05/2022 10:45 AM EDT Closed fracture of distal end of left fibula, initial encounter XR FLUORO NO RAD <1HR - OR USE Routine 02/05/2022 9:52 AM EDT Open Tx Distal Tibiofibular Joint Disruption (04435) 02/05/2022 7:34 AM EDT Closed fracture of distal end of left fibula, initial encounter MODIFIER VARIAX 2 LOCKING SMALL FRAGMENT ELISE 02/05/2022 7:34 AM EDT Closed fracture of distal end of left fibula, initial encounter Open Tx Distal Fibular Fracture Lat Malleolus (89434) 02/05/2022 7:34 AM EDT Closed fracture of distal end of left fibula, initial encounter ORIF ANKLE, LAT. MALLEOLUS, DISTAL FIBULAR FX Routine 02/05/2022 5:55 AM EDT Closed fracture of distal end of left fibula, initial encounter IMPLANTABLE DEVICES SCAN 02/05/2022 12:00 AM EDT documented in this encounter Results * XR Fluoro No Rad <1Hr - OR Use (02/05/2022 9:52 AM EDT) Narrative Dicom, Auditing User - 02/05/2022 9:52 AM EDT This exam is auto-finalizing. No interpretation was done. Jewel Tavarez MD IMG FLUORO ORDERABLE S * SCAN DOC: IMPLANTABLE DEVICES (02/05/2022 12:00 AM EDT) Unknown MEDIA MGR SCAN EXT O RDR/RSLT documented in this encounter Visit Diagnoses Diagnosis Closed fracture of distal end of left fibula, initial encounter ORIF L ankle fracture 02/05/22 Dr. Tavarez Closed fracture of distal end of left fibula, initial encounter documented in this encounter Administered Medications Inactive Administered Medications - up to 3 most recent administrations Medication Order MAR Action Action Date Dose Rate Site fentaNYL (PF) (50 mcg/mL) injection 50 mcg 50 mcg, Intravenous, EVERY 5 MIN PRN, Starting on Fri02/05/22 at 0612, Until Fri02/05/22 at 0729, Pain, or prior to injection of local anesthetic., Hold for respiratory rate less than 8 breaths per minute. (maximum dose 200 mcg) , Day of Surgery (Day of Procedure), Routine Given 02/05/2022 7:15 AM EDT 50 mcg Given 02/05/2022 7:10 AM EDT 50 mcg ipratropium-albuteroL (Duoneb) 0.5 mg-3 mg(2.5 mg base)/3 mL nebulizer solution 3 mL 3 mL, Nebulization, ONCE, 1 dose, On Fri02/05/22 at 1030, Routine Given 02/05/2022 10:14 AM EDT 3 mLs lactated ringers infusion 1,000 mL, at 100 mL/hr, Intravenous, CONTINUOUS, Starting on Fri02/05/22 at 0630, Until Fri02/05/22 at 1145, Day of Surgery (Day of Procedure) New Bag 02/05/2022 6:28 AM EDT 1,000 mLs 100 mL/hr midazolam (pf) (Versed) (1 mg/mL) injection 1 mg 1 mg, Intravenous, EVERY 5 MIN PRN, Starting on Fri02/05/22 at 0612, Until Fri02/05/22 at 0729, Other, sedation or prior to injection of local anesthetic, Hold for delirium/agitation. (Maximum dose 5 mg)., Day of Surgery (Day of Procedure), Routine Given 02/05/2022 7:27 AM EDT 1 mg Given 02/05/2022 7:10 AM EDT 1 mg vancomycin (Vancocin) injection ONCE PRN, Starting on Fri02/05/22 at 0915, Until Fri02/05/22 at 1346, Intra-Operative (Intra-Procedure), Routine Given 02/05/2022 9:15 AM EDT 1 g 19- Surgical Site documented in this encounter Active and Recently Administered Medications Times are shown in EDT. Scheduled Medication Order 02/03/2022 02/04/2022 02/05/2022 ipratropium-albuteroL (Duoneb) 0.5 mg-3 mg(2.5 mg base)/3 mL nebulizer solution 3 mL (COMPLETED) 3 mL, Nebulization, ONCE, 1 dose, On Fri02/05/22 at 1030, Routine 1014 (Given - Provid er: Maria Elena Conklin RN) Continuous Medication Order 02/03/2022 02/04/2022 02/05/2022 lactated ringers infusion (CANCELED) 1,000 mL, at 100 mL/hr, Intravenous, CONTINUOUS, Starting on Fri02/05/22 at 0630, Until Fri02/05/22 at 1145, Day of Surgery (Day of Procedure) 0628 (New Bag - Prov ider: Santosh Bruno RN) PRN Medication Order 02/03/2022 02/04/2022 02/05/2022 fentaNYL (PF) (50 mcg/mL) injection 50 mcg (CANCELED) 50 mcg, Intravenous, EVERY 5 MIN PRN, Starting on Fri02/05/22 at 0612, Until Fri02/05/22 at 0729, Pain, or prior to injection of local anesthetic., Hold for respiratory rate less than 8 breaths per minute. (maximum dose 200 mcg) , Day of Surgery (Day of Procedure), Routine 0710 (Given - Provid er: Santosh Bruno RN)0715 (Given - Provider: Santosh Bruno RN) midazolam (pf) (Versed) (1 mg/mL) injection 1 mg (CANCELED) 1 mg, Intravenous, EVERY 5 MIN PRN, Starting on Fri02/05/22 at 0612, Until Fri02/05/22 at 0729, Other, sedation or prior to injection of local anesthetic, Hold for delirium/agitation. (Maximum dose 5 mg)., Day of Surgery (Day of Procedure), Routine 0710 (Given - Provid er: Santosh Bruno RN)07 (Given - Provider: Santosh Bruno RN) vancomycin (Vancocin) injection (CANCELED) ONCE PRN, Starting on Fri02/05/22 at 0915, Until Fri02/05/22 at 1346, Intra-Operative (Intra-Procedure), Routine 0915 (Given - Provid er: Jewel Tavarez MD) documented in this encounter Care Teams Developer Automatic Relationship Specialty Start Date End Date Nikunj Tipton, JUDICIAL LAW CLERK [address] [place] [address] [address] [place] [address] PCP - General Family Medicine 01/28/22 documented as of this encounter
--- OUTSIDE RECORDS SUMMARY | 2024-06-16 14:46 | XMS_ITS | Encounter Summary ---
Author Organization [facility] Address [facility] [place] [address] Care Team Providers Care Raisin Separator Operator Name Role Phone Nikunj Tipton APRN Primary Care Provider +1- [phone] Encounter Details Date Type Department Care Team (Latest Contact Info) Description 06/03/2022 9:22 AM EDT - 06/03/2022 11:59 PM EDT Hospital Encounter XRay at [address] [place] [address] Jewel Tavarez MD [facility] [place] [address] Other closed fracture of distal end of left fibula with routine healing, subsequent encounter Discharge Disposition: Home Social History Tobacco Use Types Packs/Day Years [...] on file documented as of this encounter Medications at Time of Discharge Medication Sig Dispensed Refills Start Date End Date acetaminophen (Tylenol) 500 mg Tablet Take 1,000 mg by mouth every 6 hours as needed for Pain. documented as of this encounter Plan of Treatment Not on file documented as of this encounter Procedures Procedure Name Priority Date/Time Associated Diagnosis Comments XR ANKLE MIN 3 VIEWS LEFT Routine 06/03/2022 9:31 AM EDT Other closed fracture of distal end of left fibula with routine healing, subsequent encounter documented in this encounter Results * XR Ankle Min 3 views Left (Generic) (06/03/2022 9:31 AM EDT) Anatomical Region Laterality Modality Ankle Left Digital Radiogra phy Impressions 06/03/2022 11:23 AM EDT LEFT 1. ??ORIF of trimalleolar equivalent fracture. 2. ??Osseous bridging of lateral malleolar fracture without hardware complications 3. ??Congruent ankle mortise. Thank you for letting us participate in the care of this patient. ??If you are a health care provider and have any questions regarding this report, please contact the number below. ??For patients who have questions please contact the health progressive care unit registered nurse that requested your imaging first. ? Narrative 06/03/2022 11:23 AM EDT EXAMINATION: XR ANKLE MIN 3 VIEWS LEFT (GENERIC) CLINICAL HISTORY: s/p ankle ORIF, , entered by ordering service TECHNIQUE: LEFT ankle, 3 view[s] COMPARISON: April 03, 2022 Intraoperative radiographs, February 05, 2022. FINDINGS: Bones ORIF of trimalleolar equivalent fracture with fibular plate and screws. ORIF of syndesmosis with tight rope system. Unchanged and uncomplicated fixation hardware. Lateral malleolus-the fracture line is no longer seen. Posterior psbzauxrq-mrnv-gygdcalgtb nonunited small bone fragment surrounding the posterior malleolus. Joints Tibiotalar joint-congruent ankle mortise with normal tibial and fibular overlap. There is a residual small ankle effusion. Soft tissues Decreased soft tissue swelling Procedure Note Kelly Mendoza MD - 10/31/2022 EXAMINATION: XR ANKLE MIN 3 VIEWS LEFT (GENERIC) CLINICAL HISTORY: s/p ankle ORIF, , entered by ordering service TECHNIQUE: LEFT ankle, 3 view[s] COMPARISON: April 03, 2022 Intraoperative radiographs, February 05, 2022. FINDINGS: Bones ORIF of trimalleolar equivalent fracture with fibular plate and screws.ORIF of syndesmosis with tight rope system. Unchanged and uncomplicated fixation hardware. Lateral malleolus-the fracture line is no longer seen. Posterior vdexnqqiy-itcd-shntucqwtm nonunited small bone fragmentsurrounding the posterior malleolus. Joints Tibiotalar joint-congruent ankle mortise with normal tibial and fibularoverlap. There is a residual small ankle effusion. Soft tissues Decreased soft tissue swelling IMPRESSION LEFT 1. ORIF of trimalleolar equivalent fracture. 2. Osseous bridging of lateral malleolar fracture without hardware complications 3. Congruent ankle mortise. Thank you for letting us participate in the care of this patient. If youare a health care provider and have any questions regarding this report,please contact the number below. For patients who have questions please contactthe health progressive care unit registered nurse that requested your imaging first. Jewel Tavarez MD IMG DX ORDERABLES documented in this encounter Visit Diagnoses Diagnosis Other closed fracture of distal end of left fibula with routine healing, subsequent encounter documented in this encounter Care Teams Raisin Separator Operator Relationship Specialty Start Date End Date Nikunj Tipton, VIRTUAL REALITY SPECIALIST [address] [place] [address] PCP - General Family Medicine 01/28/22 documented as of this encounter
--- OUTSIDE RECORDS SUMMARY | 2024-06-16 14:46 | XMS_ITS | Clinical Summary ---
Author Organization [facility] Address [address] [place] [address] Care Team Providers Care Legal Technician Name Role Phone Unavailable Primary Care Provider Unavailabl e Social History Tobacco Use Types Packs/Day Years Used Date Smoking Tobacco: Never Assessed Sex and Gender Information Value Date Recorded Sex Assigned at Not on file Legal Sex Male 15:21 EST Gender Identity Not on file Sexual Orientation Not on file Plan of Treatment Health Maintenance Due Date Last Done Comments Hepatitis C Screen 1988 Hepatitis B Vaccine (1 of 3 - 19+ 3-dose series) 06/21 COVID-19 Vaccine ( season) 2024
--- OUTSIDE RECORDS SUMMARY | 2024-06-16 14:46 | XMS_ITS | Encounter Summary ---
Author Organization [facility] [place] [address] Care Team Providers Care Raimann Machine Operator Name Role Phone Nikunj Tipton APRN Primary Care Provider +1- [phone] Reason for Visit * Reason Onset Date Comments Questions 04/22/2022 Encounter Details Date Type Department Care Team (Late st Contact Info) Description 04/22/2022 Telephone [place] [id number] Jewel Tavarez MD [facility] [place] [address] Questions Social History Tobacco Use Types Packs/Day Years Used Date Smoking Tobacco: Former Cigarettes Q uit: 2010 Smokeless Tobacco: Current Chew Alcohol Use Standard Drinks/Week Comments Not Currently 5 (1 standard drink = 0.6 oz pur e alcohol) occasionally Sex and Gender Information Value Date Recorded Sex Assigned at Not on file Gender Identity Not on file Sexual Orientation Not on file documented as of this encounter Miscellaneous Notes * Telephone Encounter - Maribell Mishra - 04/25/2022 2:11 PM EDT Spoke with patient to let him know that he is able to do physical therapy out of his boot. Once he is walking comfortably in his boot he may begin weaning out of the boot as tolerated. Ever requested I call and leave a message at his physical therapy office and I did so after speaking with the patient. * Telephone Encounter - Ginette Talamantes - 04/22/2022 11:57 AM EDT Name of person calling: Ever Facility person is calling from?: N/A Was this a new injury? no Have they had Surgery? yes If so when? 02/05/22 Who is the provider? Dr. Jewel Tavarez What is the question: Ever calls to speak with someone on Dr. Tavarez's team to address questions regarding when he can progress out of the CAM boot. Please call Ever to discuss at [phone]. His physical therapist, Leonor Austin (from [facility]) needs more specific guidelines for working with him to achieve everything in the protocol, but with or without the CAM boot is the question. Please call her to discuss at [phone]. Best number to reach the caller: [phone] documented in this encounter Plan of Treatment Not on file documented as of this encounter Visit Diagnoses Not on filedocumented in this encounter Care Teams Raimann Machine Operator Relationship Specialty Start Date End Date Nikunj Tipton, TIE PULLER [address] [place] [address] PCP - General Family Medicine 01/28/22 documented as of this encounter
--- OUTSIDE RECORDS SUMMARY | 2024-06-16 14:46 | XMS_ITS | Encounter Summary ---
Author Organization [facility] Address [facility] [place] [address] Care Team Providers Care Automation Analyst Name Role Phone Nikunj Tipton APRN Primary Care Provider +1- [phone] Reason for Visit * Reason Comments Post Op DOS 02/05/22 left ankl e fx Encounter Details Date Type Department Care Team (Late st Contact Info) Description 02/20/2022 11:30 AM EDT Office [place] [address] Jewel Tavarez MD [facility] ORTHOPAED[place] [address] Closed fracture of distal end of left fibula, initial encounter; Other closed fracture of distal end of left fibula with routine healing, subsequent encounter Social History Tobacco Use Types Packs/Day [...] Sign Reading Time Taken Comments Blood Pressure 120/76 02/20/2022 11:29 AM EDT Pulse 69 02/20/2022 11:29 AM EDT Temperature - - Respiratory Rate - - Oxygen Saturation - - Inhaled Oxygen Concentration - - Weight 108.9 kg (240 lb) 02/20/2022 11:29 AM EDT Height 175.3 cm (5' 9) 02/20/2022 11:29 AM EDT Body Mass Index 35.44 02/20/2022 11:29 AM EDT documented in this encounter Progress Notes * Jewel Tavarez MD - 02/20/2022 11:30 AM EDT [facility] Ever Sterling returns for follow-up 2 weeks s/p left distal fibula and syndesmosis ORIF on 02/05/22. He reports he is doing well. His pain is now well controlled and is no longer requiring narcotic pain medication. He has not had any issues with his incision or splint, denies any fevers, nightsweats or chills. He has been compliant with his weight bearing restrictions and has been elevating the leg. He has been taking aspirin for DVT ppx. He has no other complaints today, and has a negative review of systems. [facility] FollowUp 02/20/2022 Health in general Very Good Quality of life Very Good Physical health Very Good Mental health Very Good Satisfaction with social activities Very Good Ability to carry out physical activities Not at all Rate of pain 3 Rate of fatigue Moderate Ability to carry out social activities Fair Bothered by emotional problems Sometimes PROMIS PHYSICAL HEALTH SCORE 39.8 PROMIS MENTAL HEALTH SCORE 50.8 Gone to ER since knee surgery No Admitted to hospital since knee surgery No Additional surgery on same knee No Employment status before injury Currently working Returned to previous employment No Spending time in inpatient rehab facility No Rate overall condition today 9 Physical Exam: In general he is a well appearing 31 y.o. male who is no acute distress, and was calm and cooperative throughout the examination. Examination of the left leg reveals the incisions are clean, dry, andintact with sutures in place. Minimal to moderate swelling. No erythema or signs of infection. EHL/FHL/TA/GC are intact. Capillary refill is < 3 seconds. Sensation to light touch is intact throughout. Radiographs: 3 views of the left ankle were obtained and reviewed. This demonstrates maintained alignment and reduction compared to postoperative radiographs. Ankle mortise remains concentric. There may be some slight increased medial clear space but this is likely due to plantarflexed ankle position. The talushas no lateral shift relative to the tibia. There are no changes in implant position or evidence ofimplant failure or loss of fixation. Fracture lines are visible. No other osseous abnormalities. Assessment and Plan: Ever Sterling is a 31 y.o. male who returns for follow-up 2 weeks s/p surgery. He is doing well. -Weight Bearing Status: NWB to the LLE in a cam boot walker, which was fitted today -Removed sutures and applied steri-strips -Will begin gentle range of motion exercises TID out of the boot, Therapy exercises were shown today in clinic. -Follow-up in 6 weeks for clinical evaluation and xrays of the left ankle This plan was discussed with the patient and he is in agreement. All of the patient's questions were answered. Jewel Tavarez MD Department of Orthopaedic Surgery 02/20/22 documented in this encounter Plan of Treatment Not on file documented as of this encounter Results * XR Ankle Min 3 views Left (Generic) (04/03/2022 9:53 AM EDT) Anatomical Region Laterality Modality Ankle Left Digital Radiogra phy Impressions 04/03/2022 1:33 PM EDT Status post ORIF of distal fibular fracture. No hardware complications. The mortise joint space is symmetric and preserved. Healing posterior malleolus fracture. Thank you for letting us participate in the care of this patient. ??If you are a health care provider and have any questions regarding this report, please contact the number below. ??For patients who have questions please contact the health home care and home health aides teacher that requested your imaging first. ? Electronically signed by: Samara Powers MD, [facility] ([phone]), at 04/03/2022 1:33 PM Narrative 04/03/2022 1:33 PM EDT EXAMINATION: XR ANKLE MIN 3 VIEWS LEFT (GENERIC) CLINICAL HISTORY: s/p left ankle ORIF (as entered by ordering provider in the order requisition) TECHNIQUE: Nonweightbearing AP, mortise, and lateral views of the left ankle. COMPARISON: Left ankle radiographs 02/20/2022 and intraoperative fluoroscopic images 02/05/2022. Left ankle radiograph 01/27/2022. FINDINGS: Postoperative changes status post ORIF of Blair type C fracture of the distal fibula with a syndesmotic tight rope. There is a small fracture fragment from a mildly displaced posterior malleolus fracture. There is increasing bridging callus formation at that site. The mortise joint space is symmetric and preserved on this limited nonweightbearing view. The talar dome is intact. The hardware is intact with no lucency around the screws. No screw backout. No tibiotalar joint effusion. No new fracture. Procedure Note Samara Powers MD - 04/03/2022 EXAMINATION: XR ANKLE MIN 3 VIEWS LEFT (GENERIC) CLINICAL HISTORY: s/p left ankle ORIF (as entered by ordering provider inthe order requisition) TECHNIQUE: Nonweightbearing AP, mortise, and lateral views of the left ankle. COMPARISON: Left ankle radiographs 02/20/2022 and intraoperative fluoroscopic images 02/05/2022. Left ankle radiograph 01/27/2022. FINDINGS: Postoperative changes status post ORIF of Blair type C fracture of thedistal fibula with a syndesmotic tight rope. There is a small fracture fragment from a mildly displaced posteriormalleolus fracture. There is increasing bridging callus formation at that site. The mortise joint space is symmetric and preserved on this limited nonweightbearing view. The talar dome is intact. The hardware is intactwith no lucency around the screws. No screw backout. No tibiotalar joint effusion.No new fracture. IMPRESSION Status post ORIF of distal fibular fracture. No hardware complications.The mortise joint space is symmetric and preserved. Healing posterior malleolus fracture. Thank you for letting us participate in the care of this patient. If youare a health care provider and have any questions regarding this report,please contact the number below. For patients who have questions please contactthe health home care and home health aides teacher that requested your imaging first. Electronically signed by: Samara Powers MD, [facility]([phone]), at 04/03/2022 1:33 PM Jewel Tavarez MD IMG DX ORDERABLES * XR Ankle Min 3 views Left (Generic) (02/20/2022 11:09 AM EDT) Anatomical Region Laterality Modality Ankle Left Digital Radiogra phy Impressions 02/20/2022 1:15 PM EDT No acute complication is identified following open reduction internal fixation of the ankle. Thank you for letting us participate in the care of this patient. ??If you are a health care provider and have any questions regarding this report, please contact the number below. ??For patients who have questions please contact the health home care and home health aides teacher that requested your imaging first. ? Electronically signed by: Patrice Skinner MD, [facility] ([phone]), at 02/20/2022 1:15 PM Narrative 02/20/2022 1:15 PM EDT EXAMINATION: XR ANKLE MIN 3 VIEWS LEFT (GENERIC) CLINICAL HISTORY: left ankle ORIF TECHNIQUE: 3 views LEFT ankle COMPARISON: X-ray 01/27/2022 and intraoperative fluoroscopic images dated 02/05/2022 FINDINGS: As seen on the patient's intraoperative imaging the previously identified fracture of the distal fibula has been reduced and fixed with lateral plate and screw fixation. The syndesmosis has been reduced restoring a normal ankle mortise. The syndesmosis is stabilized with fiber wire fixation. No focal swelling or large effusion is identified. Procedure Note Patrice Skinner MD - 02/20/2022 EXAMINATION: XR ANKLE MIN 3 VIEWS LEFT (GENERIC) CLINICAL HISTORY: left ankle ORIF TECHNIQUE: 3 views LEFT ankle COMPARISON: X-ray 01/27/2022 and intraoperative fluoroscopic images dated 02/05/2022 FINDINGS: As seen on the patient's intraoperative imaging the previouslyidentified fracture of the distal fibula has been reduced and fixed with lateralplate and screw fixation. The syndesmosis has been reduced restoring a normalankle mortise. The syndesmosis is stabilized with fiber wire fixation. Nofocal swelling or large effusion is identified. IMPRESSION No acute complication is identified following open reduction internalfixation of the ankle. Thank you for letting us participate in the care of this patient. If youare a health care provider and have any questions regarding this report,please contact the number below. For patients who have questions please contactthe health home care and home health aides teacher that requested your imaging first. Electronically signed by: Patrice Skinner MD, [facility]([phone]), at 02/20/2022 1:15 PM Jewel Tavarez MD IMG DX ORDERABLES documented in this encounter Visit Diagnoses Diagnosis Closed fracture of distal end of left fibula, initial encounter Other closed fracture of distal end of left fibula with routine healing, subsequent encounter Closed fracture of distal end of left fibula, initial encounter Other closed fracture of distal end of left fibula with routine healing, subsequent encounter documented in this encounter Care Teams Automation Analyst Relationship Specialty Start Date End Date Nikunj Tipton APRN [address] [place] [address] PCP - General Family Medicine 01/28/22 documented as of this encounter
--- OUTSIDE RECORDS SUMMARY | 2024-06-16 14:46 | XMS_ITS | Encounter Summary ---
Author Organization [facility] Address [address] [place] [address] Care Team Providers Care Putter In Name Role Phone Unavailable Primary Care Provider Unavailabl e Encounter Details Date Type Department Care Team (Late st Contact Info) Description 06/20/[address] [facility] Pathology & Laboratory Medicine - [facility] [address] [place] [address] Outr Resulting Lab, Provider Social History Tobacco [...] Associated Diagnosis Comments PSA TOTAL, DIAGNOSTIC Routine 06/20/2023 8:13 EST documented in this encounter Results * PSA TOTAL, DIAGNOSTIC (06/20/2023 8:13 EST) PSA 0.4 <=2.5 ng/mL 06/20/2023 19:38 EST [facility] Blood VENOUS BLOOD / Unknown 06/20/2023 8:13 EST 06/20/2023 17:19 EST Narrative [facility] - 06/20/2023 19:38 EST NOTE: Serum PSA concentration should not be interpreted as absolute evidence for the presence or absence of malignant disease. Assayed on Siemens ADVIA Centaur XPT using chemiluminescent technology.??Values obtained by using different assay methods cannot be used interchangeably. us Provider Outr Resulting Lab CHEMISTRY & BLOOD GA S ORDERABLES Final Result [facility] [address] [place] [address] documented in this encounter Visit Diagnoses Not on filedocumented in this encounter
--- OUTSIDE RECORDS SUMMARY | 2024-06-16 14:46 | XMS_ITS | Encounter Summary ---
Author Organization [facility] Address [facility] [place] [address] Care Team Providers Care Belt And Link Shop Supervisor Name Role Phone Nikunj Tipton APRN Primary Care Provider +1- [phone] Encounter Details Date Type Department Care Team (Latest Contact Info) Description 04/03/2022 9:38 AM EDT - 04/03/2022 11:59 PM EDT Hospital Encounter XRay at [address] [place] [address] Jewel Tavarez MD [facility] [place] [address] Other closed fracture of distal end of left fibula with routine healing, subsequent encounter Discharge Disposition: Home Social History Tobacco Use Types Packs/Day Years Used Date Smoking Tobacco: Former Cigarettes Q uit: 2009 Smokeless Tobacco: Current Chew Alcohol Use Standard [...] XR ANKLE MIN 3 VIEWS LEFT Routine 04/03/2022 9:53 AM EDT Other closed fracture of distal [...] who have questions please contact the health primary care nurse that requested your imaging first. ? Narrative 04/03/2022 1:33 PM EDT EXAMINATION: XR [...] patients who have questions please contactthe health primary care nurse that requested your imaging first. Jewel Tavarez MD IMG DX ORDERABLES documented in this encounter Visit Diagnoses Diagnosis Other closed fracture of distal end of left fibula with routine healing, subsequent encounter documented in this encounter Care Teams Belt And Link Shop Supervisor Relationship Specialty Start Date End Date Nikunj Tipton, PIPE FINISHING SUPERVISOR [address] [place] [address] PCP - General Family Medicine 01/28/22 documented as of this encounter
--- OUTSIDE RECORDS SUMMARY | 2024-06-16 14:46 | XMS_ITS | Encounter Summary ---
Author Organization [facility] Address [facility] [place] [address] Care Team Providers Care Steam And Power Superintendent Name Role Phone Nikunj Tipton APRN Primary Care Provider +1- [phone] Reason for Visit * Reason Comments Establish Care Left Bimall equivale nt ankle fx, DOI 01/27/2022 (reduced) * Surgical (Urgent) - Closed Specialty Diagnoses / Procedures Referred By Brandi bush Referred To Contact Orthopaedics Diagnoses Left Bimall equivalent ankle fx Doi 01/27/2022 (reduced) Susannah Ross MD [facility] [place] [address] [facility] [address] [place] [phone] Referral ID Status Reason Start Date Expiration Date Visits Re quested Visits Authorized [id number] Closed 01/28/2022 01/28/2023 1 1 Encounter Details Date Type Department Care Team (Late st Contact Info) Description 01/28/2022 1:00 PM EDT Office [place] [address] Jewel Tavarez MD [facility] [place] [address] Closed fracture of distal end of left fibula, initial encounter Social History Tobacco Use Types Packs/Day [...] Sign Reading Time Taken Comments Blood Pressure 121/63 01/28/2022 1:12 PM EDT Pulse 68 01/28/2022 1:12 PM EDT Temperature - - Respiratory Rate - - Oxygen Saturation - - Inhaled Oxygen Concentration - - Weight 113.4 kg (250 lb) 01/28/2022 1:12 PM EDT Height 175.3 cm (5' 9) 01/28/2022 1:12 PM EDT Body Mass Index 36.92 01/28/2022 1:12 PM EDT documented in this encounter Progress Notes * Jewel Tavarez MD - 01/28/2022 1:00 PM EDT Orthopedic Trauma History and Physical Chief complaint: left ankle pain History of present illness: Ever Sterling is a 31 y.o. year-old male who was playing softball when he slipped and twisted his ankle injuring his left ankle on 01/27/2022. He was evaluated at [facility] emergency room and found to have a left distal fibula fracture. He was placed into a posterior splint and made nonweightbearing. He presents today for further evaluation and treatment. His pain is controlled, however his splint is uncomfortable. He has been compliant with his weightbearing restrictions. He has been elevating. He denies any previous trauma to this ankle. He denies pain anywhere else. He denies any numbness or tingling. He has no other complaints and has a negative review of systems. Past medical history: There are no problems to display for this patient. Medications: ??? oxyCODONE 5 mg Capsule ??? ondansetron ODT (Zofran-ODT) 4 mg Tablet, Rapid Dissolve ??? acetaminophen (Tylenol) 500 mg Tablet ??? ibuprofen (Advil) 600 mg Tablet ??? oxyCODONE (Roxicodone) 5 mg Tablet ??? ondansetron (Zofran) 4 mg Tablet Allergies: Allergies Allergen Reactions ??? Tramadol Nausea And Vomiting Social history: Social History Tobacco Use ??? Smoking status: Former Smoker Types: Cigarettes ??? Smokeless tobacco: Current User Types: Chew Substance Use Topics ??? Alcohol use: Yes Comment: occasionally Review of systems: No chest pain or shortness of breath No fevers, night sweats or chills Vital signs: Patient Vitals for the past 24 hrs: Pulse BP 01/28/22 1312 68 121/63 Physical Exam: Patient Vitals for the past 24 hrs: Pulse BP 01/28/22 1312 68 121/63 Constitutional: AOx3, NAD, calm and cooperative throughout the examination Cardiovascular: RRR, 2+ distal pulses Respiratory: non-labored breathing, no wheezes GI: soft NT/ND Musculoskeletal: RLE: Skin is intact. No swelling or erythema. Full painless ROM hip/knee/ankle. Motor intact to hipflexion/quad/ham/TA/GS/EHL. Sensation intact to DP/SP/T/saphenous/sural nerve nerve distributions. 2+ DP pulse. Foot is warm and well perfused. LLE: Skin is intact, no fracture blisters. Significant swelling of the ankle.. Full painless ROM hip/knee Motor intact to hip flexion/quad/ham/TA/GS/EHL. Sensation intact to DP/SP/T/saphenous/sural nerve nerve distributions. 2+ DP pulse. Foot is warm and well perfused. Imaging: Personal review of the patient's imaging reveals: I reviewed images of the left ankle from [facility] on 01/27/2022 which show a Blair C distal fibular fracture with a widened syndesmosis and medial clear space widening. No other acute osseous abnormalities Assessment: 31 y.o. year-old male with a Blair C distal fibula fracture, widened syndesmosis, medial clear space widening. Plan: We had a long discussion regarding the nature of his injury. He has a distal fibula fracture with awidened syndesmosis and medial clear space widening representing [...] and would like to proceed with surgery. -Nonweightbearing in short leg splint left lower extremity with crutches -Short leg splint was placed under fluoroscopy, reduction was maintained. -Plan for left distal fibula and syndesmosis ORIF on 02/05/2022 This plan was discussed with the patient and they are in agreement. All of the patient's questions were answered. Jewel Tavarez MD The above dictation was made with voice recogonition software documented in this encounter Plan of Treatment Not on file documented as of this encounter Visit Diagnoses Diagnosis Closed fracture of distal end of left fibula, initial encounter documented in this encounter Care Teams Steam And Power Superintendent Relationship Specialty Start Date End Date Nikunj Tipton APRN [address] [place] [address] PCP - General Family Medicine 01/28/22 documented as of this encounter
--- OUTSIDE RECORDS SUMMARY | 2024-06-16 14:46 | XMS_ITS | Encounter Summary ---
Author Organization [facility] Address [facility] [place] [address] Care Team Providers Care Commercial Construction Project Manager Name Role Phone Nikunj Tipton APRN Primary Care Provider +1- [phone] Reason for Referral * Physical Therapy (Routine) - Closed Specialty Diagnoses / Procedures Referred By Brandi bush Referred To Contact Physical Therapy Diagnoses Other closed fracture of distal end of left fibula with routine healing, subsequent encounter Jewel Tavarez MD [facility] [place] [address] Referral ID Status Reason Start Date Expiration Date V isits Requested Visits Authorized [id number] Closed Evaluate and Treat 04/03/2022 09/30/2022 12 12 Reason for Visit * Reason Comments Follow Up Surgery Left ankle ORIF Encounter Details Date Type Department Care Team (Late st Contact Info) Description 04/03/2022 10:30 AM EDT Office [place] [address] Jewel Tavarez MD [facility] [place] [address] Other closed fracture of distal end of [...] Sign Reading Time Taken Comments Blood Pressure 142/76 04/03/2022 10:44 AM EDT Pulse 65 04/03/2022 10:44 AM EDT Temperature - - Respiratory Rate - - Oxygen Saturation - - Inhaled Oxygen Concentration - - Weight 113.4 kg (250 lb) 04/03/2022 10:44 AM EDT Height 175.3 cm (5' 9) 04/03/2022 10:44 AM EDT Body Mass Index 36.92 04/03/2022 10:44 AM EDT documented in this encounter Progress Notes * Jewel Tavarez MD - 04/03/2022 10:30 AM EDT Orthopaedic Surgery Trauma Clinic Ever Sterling returns for follow-up 8 weeks s/p left distal fibula and syndesmosis ORIF on 02/05/22. He reports he is doing well. He has minimal pain. He has been NWB in a camboot, although he does admit to putting occasional weight on his LLE. He has not had any issues with his incision or boot, denies any fevers, nightsweats or chills. He does complain of some numbness in the saphenous nerve distribution along his medial forefoot which has been since the injury. He has no other complaints today, and has a negative review of systems. [facility] FollowUp 02/20/2022 Health in general Very Good [...] the left leg reveals the incisions are healing well. Minimal to moderate swelling. No erythema or signs of infection. EHL/FHL/TA/GC are intact. Capillary refill is < 3 seconds. Sensation to light touch is intact throughout, except decreased sensation in the medial mid and forefoot. Radiographs: 3 views of the left ankle were obtained and reviewed. This demonstrates maintained alignment and reduction compared to postoperative radiographs. Ankle mortise remains concentric. There are no changes in implant position or evidence of implant failure or loss of fixation. Fracture lines are consolidating. No other osseous abnormalities. Assessment and Plan: Ever Sterling is a 31 y.o. male who returns for follow-up 8 weeks s/p surgery. He is doing well. -Weight Bearing Status: progressive WBAT LLE in a cam boot walker -start outpatient PT working ROM, gait training, proprioception. -Follow-up in 8 weeks for clinical evaluation and xrays of the left ankle -Note given to be out of work until further evaluation This plan was discussed with the patient and he is in agreement. All of the patient's questions were answered. Jewel Tavarez MD Department of Orthopaedic Surgery 04/03/22 documented in this encounter Plan of Treatment Scheduled Referrals Name Type Priority Associated Diagnoses Orde r Schedule Referral to Physical Therapy Outpatient Referral Routine Other closed fracture of distal end of left fibula with routine healing, subsequent encounter Ordered: 04/03/2022 documented as of this encounter Results * [...] who have questions please contact the health managed care manager that requested your imaging first. ? Electronically signed by: Kelly Mendoza MD, [facility] ([phone]), at 06/03/2022 11:23 AM Narrative 06/03/2022 11:23 AM EDT EXAMINATION: XR [...] fracture line is no longer seen. Posterior zqxpvzoef-lrhb-ygktijtbcp nonunited small bone fragment surrounding the posterior malleolus. Joints Tibiotalar joint-congruent ankle mortise with normal tibial and fibular overlap. There is a residual small ankle effusion. Soft tissues Decreased soft tissue swelling Procedure Note Kelly Mendoza MD - 06/03/2022 EXAMINATION: XR ANKLE MIN 3 VIEWS LEFT [...] fracture line is no longer seen. Posterior [id number]-bfalutfdlp nonunited small bone fragmentsurrounding the posterior malleolus. [...] patients who have questions please contactthe health managed care manager that requested your imaging first. Electronically signed by: Kelly Mendoza MD, [facility]([phone]), at 06/03/2022 11:23 AM Jewel Tavarez MD IMG DX ORDERABLES documented in this encounter Visit Diagnoses Diagnosis Other closed fracture of distal end of left fibula with routine healing, subsequent encounter Other closed fracture of distal end of left fibula with routine healing, subsequent encounter documented in this encounter Care Teams Commercial Construction Project Manager Relationship Specialty Start Date End Date Nikunj Tipton, REGISTERED NURSE RENAL [address] [place] [address] PCP - General Family Medicine 01/28/22 documented as of this encounter
--- OUTSIDE RECORDS SUMMARY | 2024-06-16 14:46 | XMS_ITS | Encounter Summary ---
Author Organization [facility] Address [facility] [place] [address] Care Team Providers Care Inventory Associate And Driver Name Role Phone Nikunj Tipton APRN Primary Care Provider +1- [phone] Reason for Visit * Reason Onset Date Comments Appointment 02/06/2022 Encounter Details Date Type Department Care Team (Late st Contact Info) Description 02/06/2022 Telephone [place] [phone] Charly Castaneda MD [facility] [place] [address] Appointment Social History Tobacco Use Types Packs/Day Years [...] encounter Miscellaneous Notes * Telephone Encounter - Ginette Talamantes - 02/07/2022 8:39 AM EDT Patient's called this morning per the ortho resident account relationship manager last night - they require and appointment to have Ever's splint looked at. Per Giovanna - I've added this patient on the ortho resident schedule today at 11 AM. * Telephone Encounter - Charly Castaneda MD - 02/06/2022 8:10 PM EDT Received patient phone call from Ever Sterling and his Drea regarding pain control. Patientis a 31-year-old male who underwent a left trimalleolar equivalent ankle ORIF on 02/05/[address] Tavarez. Patient's states that his anesthetic ankle block wore off around 1 PM today after which he has been experiencing increasingly [...] However she does wonder if the splint is too tight. Patient has a prescription for 5 mg of oxycodone every 4 hours. I recommended that it be reasonable to increase this dosage to 5 mg every 4 hours may take an additional 5 mg after 1 hour if pain is unresolved for a maximum of 10 mg every 4 hours. Patient was originally prescribed 15 pills, I offered reassurance that with this new regimen should he run out of pills we can arrange for additional prescription as needed. I explained that some degree of pain after surgery is to be expected and that patient should continue to take Tylenol and ibuprofen to supplement his opioid regimen. He should also intermittently icethrough the splint and keep the splint strictly elevated. However, given that the patient is also experiencing this burning sensation over his heel this raises my concern that he may have a pressure point in his splint. I recommended that if this sensation continues overnight the of the patient give us a call in the morning to arrange for him to beseen in clinic for a possible splint exchange. This would be to ensure that there is not a pressure point in a splint they can potentially cause injury to his skin. Patient's was in understanding of this plan and understands the new pain regimen and we will plan on calling us in the morning with an update likely to come into clinic for possible splint inspection and exchange. documented in this encounter Plan of Treatment Not on file documented as of this encounter Visit Diagnoses Not on filedocumented in this encounter Care Teams Inventory Associate And Driver Relationship Specialty Start Date End Date Nikunj Tipton, NICOLA [address] [place] [address] [address] [facility] [place] [address] PCP - General Family Medicine 01/28/22 documented as of this encounter
--- OUTSIDE RECORDS SUMMARY | 2024-06-16 14:46 | XMS_ITS | Encounter Summary ---
Author Organization [facility] Address [facility] [place] [address] Care Team Providers Care Cutting Machine Operator Helper Name Role Phone Nikunj Tipton APRN Primary Care Provider +1- [phone] Encounter Details Date Type Department Care Team (Latest Contact Info) Description 09/30/2022 8:45 AM EST - 09/30/2022 11:59 PM [facility] Hospital Encounter XRay at [address] [place] [address] Jewel Tavarez MD [facility] [place] [address] Other closed fracture of distal end of [...] XR ANKLE MIN 3 VIEWS LEFT Routine 09/30/2022 9:00 AM EST Other closed fracture of distal end of left fibula with routine healing, subsequent encounter documented in this encounter Results * XR Ankle Min 3 views Left (Generic) (09/30/2022 9:00 AM EST) Anatomical Region Laterality Modality Ankle Left Digital Radiogra phy Impressions 09/30/2022 9:28 AM EST Healed, hardware reduced left syndesmosis and distal fibula fracture without radiographic finding of complication. Thank you for letting us participate in the care of this patient. ??If you are a health care provider and have any questions regarding this report, please contact the number below. ??For patients who have questions please contact the health career advisor that requested your imaging first. ? Electronically signed by: Meka Burks MD, [facility] ([phone]), at 09/30/2022 9:28 AM Narrative 09/30/2022 9:28 AM EST EXAMINATION: XR ANKLE MIN 3 VIEWS LEFT (GENERIC) CLINICAL HISTORY: s/p ankle oRIF TECHNIQUE: AP, oblique and lateral weightbearing views LEFT ankle COMPARISON: Radiographs January 27, February 20, April 03 and June 03, 2022 FINDINGS: -Syndesmosis is reduced with tightrope construct. -Oblique distal fibula fracture above level of syndesmosis is reduced with lateral plate and screws. -Hardware is intact without adjacent lucency, change in position, bone or joint malalignment. Fracture lines are indistinct. Small heterotopic bone at posterior malleolus is unchanged. Spacing and alignment are preserved at the syndesmosis, mortise, subtalar and midfoot joints. No focal soft tissue abnormality. Procedure Note Meka Burks MD - 09/30/2022 EXAMINATION: XR ANKLE MIN 3 VIEWS LEFT (GENERIC) CLINICAL HISTORY: s/p ankle oRIF TECHNIQUE: AP, oblique and lateral weightbearing views LEFT ankle COMPARISON: Radiographs January 27, February 20, April 03 and June 03, 2022 FINDINGS: -Syndesmosis is reduced with tightrope construct. -Oblique distal fibula fracture above level of syndesmosis is reducedwith lateral plate and screws. -Hardware is intact without adjacent lucency, change in position, bone orjoint malalignment. Fracture lines are indistinct. Small heterotopic bone at posteriormalleolus is unchanged. Spacing and alignment are preserved at the syndesmosis,mortise, subtalar and midfoot joints. No focal soft tissue abnormality. IMPRESSION Healed, hardware reduced left syndesmosis and distal fibula fracturewithout radiographic finding of complication. Thank you for letting us participate in the care of this patient. If youare a health care provider and have any questions regarding this report,please contact the number below. For patients who have questions please contactthe health career advisor that requested your imaging first. Electronically signed by: Meka Burks MD, [facility]([phone]), at 09/30/2022 9:28 AM Jewel Tavarez MD IMG DX ORDERABLES documented in this encounter Visit Diagnoses Diagnosis Other closed fracture of distal end of left fibula with routine healing, subsequent encounter documented in this encounter Care Teams Cutting Machine Operator Helper Relationship Specialty Start Date End Date Nikunj Tipton, NICOLA [address] [place] [address] PCP - General Family Medicine 01/28/22 documented as of this encounter
--- OUTSIDE RECORDS SUMMARY | 2024-06-16 14:46 | XMS_ITS | Encounter Summary ---
Author Organization [facility] [place] [address] Care Team Providers Care Land Sales Agent Name Role Phone Nikunj Tipton APRN Primary Care Provider +1- [phone] Encounter Details Date Type Department Care Team (Late st Contact Info) Description 07/05/2022 Orders [place] [address] Jewel Tavarez MD [facility] [place]THOPAEDIC [place] [address] Other closed fracture of distal end of [...] as of this encounter Progress Notes * Jewell Olivares - 07/05/2022 9:27 AM EST . documented in this encounter Plan of Treatment Not on file documented as of this encounter Visit Diagnoses Diagnosis Other closed fracture of distal end of left fibula with routine healing, subsequent encounter documented in this encounter Care Teams Land Sales Agent Relationship Specialty Start Date End Date Nikunj Tipton APRN [address] [place] [address] PCP - General Family Medicine 01/28/22 documented as of this encounter
--- OUTSIDE RECORDS SUMMARY | 2024-06-16 14:46 | XMS_ITS | Encounter Summary ---
Author Organization [facility] Address [facility] [place] [address] Care Team Providers Care Environmental Field Office Manager Name Role Phone Nikunj Tipton APRN Primary Care Provider +1- [phone] Encounter Details Date Type Department Care Team (Latest Contact Info) Description 02/20/2022 10:54 AM EDT - 02/20/2022 11:59 PM EDT Hospital Encounter XRay at [address] [place] [address] Jewel Tavarez MD [facility] ORTHOPAEDIC [place] [address] Closed fracture of distal end of left fibula, initial encounter Discharge Disposition: Home Social History Tobacco [...] needed for Nausea. 20 tablet 02/05/2022 04/03/2022 ibuprofen (Advil) 600 mg Tablet Take 600 mg by mouth every 6 hours as needed for Pain. 04/03/2022 documented as of this encounter Plan of Treatment Not on file documented as of this encounter Procedures Procedure Name Priority Date/Time Associated Diagnosis Comments XR ANKLE MIN 3 VIEWS LEFT Routine 02/20/2022 11:09 AM EDT Closed fracture of distal end of left fibula, initial encounter documented in this encounter Results * [...] who have questions please contact the health child daycare worker that requested your imaging first. ? Electronically signed by: Patrice Skinner MD, [facility] ([phone]), at 02/20/2022 1:15 PM Narrative 02/20/2022 1:15 [...] patients who have questions please contactthe health child daycare worker that requested your imaging first. Electronically signed by: Patrice Skinner MD, [facility]([phone]), at 02/20/2022 1:15 PM Jewel Tavarez MD IMG DX ORDERABLES documented in this encounter Visit Diagnoses Diagnosis Closed fracture of distal end of left fibula, initial encounter documented in this encounter Care Teams Environmental Field Office Manager Relationship Specialty Start Date End Date Nikunj Tipton APRN [address] [place] [address] PCP - General Family Medicine 01/28/22 documented as of this encounter
--- OUTSIDE RECORDS SUMMARY | 2024-06-16 14:46 | XMS_ITS | Encounter Summary ---
Author Organization [facility] [place] [address] Care Team Providers Care Clinical Product Manager Name Role Phone Nikunj Tipton APRN Primary Care Provider +1- [phone] Reason for Visit * Reason Comments Follow Up Fracture Closed fracture of d istal end of left fibula, initial encounter Encounter Details Date Type Department Care Team (Late st Contact Info) Description 02/20/2022 10:45 AM EDT Office Visit Orthopaedics at [facility] [place] [address] Closed fracture of distal end of left [...] as of this encounter Progress Notes * Maribell Mishra - 02/20/2022 10:45 AM EDT Ever Sterling presents to the clinic for a splint off per . The splint was intact upon arrival and taken off. The patient tolerated this procedure well. The patient's skin was intact.The patient was then sent to x-ray. documented in this encounter Plan of Treatment Not on file documented as of this encounter Visit Diagnoses Diagnosis Closed fracture of distal end of left fibula, initial encounter documented in this encounter Care Teams Clinical Product Manager Relationship Specialty Start Date End Date Nikunj Tipton, NICOLA [address] [place] [address] PCP - General Family Medicine 01/28/22 documented as of this encounter
--- OUTSIDE RECORDS SUMMARY | 2024-06-16 14:46 | XMS_ITS | Encounter Summary ---
Author Organization [facility] Address [facility] [place] [address] Care Team Providers Care Sternman Name Role Phone Nikunj Tipton APRN Primary Care Provider +1- [phone] Reason for Visit * Reason Comments Follow-up R S/P LT ANKLE OR IF DOS 02/05/22 (TOBIAS) Encounter Details Date Type Department Care Team (Late st Contact Info) Description 06/03/2022 10:30 AM EDT Office [place] [address] [facility] [place]OPAED[place] [address] Other closed fracture of distal end of [...] Pulse 66 06/03/2022 10:02 AM EDT Temperature - - Respiratory Rate - - Oxygen Saturation - - Inhaled Oxygen Concentration - - Weight 113.4 kg (250 lb) 06/03/2022 10:02 AM EDT Height 175.3 cm (5' 9) 06/03/2022 10:02 AM EDT Body Mass Index 36.92 06/03/2022 10:02 AM EDT documented in this encounter Progress Notes * Jewel Tavarez MD - 06/03/2022 10:30 AM EDT Orth[facility] Ever Setrling returns for follow-up 4months s/p left distal fibula and syndesmosis ORIF on 02/05/22. He reports he is doing well. He has no pain. He has been full weight bearing without assistive devices. He wears his lace up ankle support if he is going on hikes. He has not had any issues with his incision, he denies any fevers, nightsweats or chills. He reports having ~95% of a normal ankle with just some complaints of stiffness in the morning that loosens up quickly with activity. 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 He has no other complaints today, and has a negative review of systems. [facility] FollowUp 02/20/2022 Health in general Very Good [...] the left leg reveals the incisions are well healedl. Minimal swelling. No erythema or signs of infection. EHL/FHL/TA/GC are intact. Capillary refill is < 3 seconds. Sensation to light touch is intact throughout. Ankle ROM: near full. Radiographs: 3 views of the left ankle were obtained and reviewed. This demonstrates maintained alignment and reduction compared to postoperative radiographs. Ankle mortise remains concentric. There are no changes in implant position or evidence of implant failure or loss of fixation. Fracture lines are consolidating. No other osseous abnormalities. Assessment and Plan: Ever Sterling is a 31 y.o. male who returns for follow-up 4months s/p surgery. He is doing well, and he has healed. He can return to work. -Weight Bearing Status: WBAT -Follow-up in 4 months for clinical evaluation and xrays of the left ankle -RTW given This plan was discussed with the patient and he is in agreement. All of the patient's questions were answered. Jewel Tavarez MD Department of Orthopaedic Surgery 06/03/22 documented in this encounter Plan of Treatment Not on file documented as of this encounter Visit Diagnoses Diagnosis Other closed fracture of distal end of left fibula with routine healing, subsequent encounter documented in this encounter Care Teams Sternman Relationship Specialty Start Date End Date Nikunj Tipton APRN [address] [place] [address] PCP - General Family Medicine 01/28/22 documented as of this encounter
--- OUTSIDE RECORDS SUMMARY | 2024-06-16 14:46 | XMS_ITS | Referral Summary ---
Author Organization [facility] Address [address] [place] [address] Care Team Providers Care University President Name Role Phone Unavailable Primary Care Provider Unavailabl e Social History Tobacco Use Types Packs/Day Years Used Date Smoking Tobacco: Never Assessed Sex and Gender Information Value Date Recorded Sex Assigned at Not on file Legal Sex Male 15:21 EST Gender Identity Not on file Sexual Orientation Not on file Plan of Treatment Not on file
--- OUTSIDE RECORDS SUMMARY | 2024-06-16 14:46 | XMS_ITS | Encounter Summary ---
Author Organization [facility] Address [facility] [place] [address] Care Team Providers Care Glass Processing Worker Name Role Phone Nikunj Tipton APRN Primary Care Provider +1- [phone] Encounter Details Date Type Department Care Team (Late st Contact Info) Description 09/17/2022 Orders [place] [address] Jewel Tavarez MD [facility] [place] [address] Other closed fracture of distal end of [...] who have questions please contact the health healthcare analyst that requested your imaging first. ? Electronically signed by: Meka Burks MD, [facility] ([phone]), at 09/30/2022 9:28 AM Narrative 09/30/2022 9:28 [...] patients who have questions please contactthe health healthcare analyst that requested your imaging first. Electronically signed by: Meka Burks MD, [facility]([phone]), at 09/30/2022 9:28 AM Jewel Tavarez MD IMG DX ORDERABLES documented in this encounter Visit Diagnoses Diagnosis Other closed fracture of distal end of left fibula with routine healing, subsequent encounter Other closed fracture of distal end of left fibula with routine healing, subsequent encounter documented in this encounter Care Teams Glass Processing Worker Relationship Specialty Start Date End Date Nikunj Tipton APRN [address] [place] [address] PCP - General Family Medicine 01/28/22 documented as of this encounter
--- OUTSIDE RECORDS SUMMARY | 2024-06-16 14:46 | XMS_ITS | Encounter Summary ---
Author Organization [facility] [place] [address] Care Team Providers Care Mineral Wool Insulation Supervisor Name Role Phone Nikunj Tipton APRN Primary Care Provider +1- [phone] Reason for Visit * Reason Onset Date Comments Disability Paperwork 04/12/2022 Encounter Details Date Type Department Care Team (Late st Contact Info) Description 04/12/2022 Telephone [place] [phone] Jewel Tavarez MD [facility] [place]OPAED[facility] [place] [address] Disability Paperwork Social History Tobacco Use Types [...] * Telephone Encounter - Lida Mireles - 04/19/2022 10:13 AM EDT Completed by: Lida To provider for review/signature: No signature page included Faxed/Mailed/[facility]/Pick-up Date: Faxed & Mailed to patient * Telephone Encounter - Lida Mireles - 04/12/2022 2:34 PM EDT Date Received: 04/12/22 Insurance/Disability Company Name: [employer] documented in this encounter Plan of Treatment Not on file documented as of this encounter Visit Diagnoses Not on filedocumented in this encounter Care Teams Mineral Wool Insulation Supervisor Relationship Specialty Start Date End Date Nikunj Tipton, NICOLA [address] [place] [address] [address] [place] [address] PCP - General Family Medicine 01/28/22 documented as of this encounter
--- OUTSIDE RECORDS SUMMARY | 2024-06-16 14:46 | XMS_ITS | Encounter Summary ---
Author Organization [facility] Address [facility] [place] [address] Care Team Providers Care Brand Strategist Name Role Phone Nikunj Tipton APRN Primary Care Provider +1- [phone] Reason for Visit * Auth/Cert Specialty Diagnoses [...] LOCKING SMALL FRAGMENT ELISE Jewel Tavarez MD [facility] [place] [address] [facility] Referral ID Status Reason Start Date Expiration Date Visits Re quested Visits Authorized [id number] 1 1 Encounter Details Date Type Department Care Team (Latest Contact Info) Description 02/05/2022 5:41 AM EDT - 02/05/2022 11:46 AM EDT Hospital Encounter [place] [address] Jewel Tavarez MD [facility] [place] [address] Closed fracture of distal end of left [...] Sign Reading Time Taken Comments Blood Pressure 131/69 02/05/2022 11:00 AM EDT Pulse 76 02/05/2022 7:27 AM EDT Temperature 36.5 ??C (97.7 ??F) 02/05/2022 10:06 AM E DT Respiratory Rate 16 02/05/2022 11:00 AM EDT [...] 24 hours, please call the Anesthesiology Department: [phone] Shortness of breath: If you have severe shortness of breath that seems to go on and on, please go to the nearest ER (emergency room). If a nerve block lasts longer than 48 hours, take action. If the nerve block does not wear off within 48 hours, please call the Anesthesiology Department: [phone] Protect the part of your body that [...] the Anesthesiology Department with concerns or questions: [phone] After hours: Call the hospital refinery operator helper cracking unit and ask for the anesthesiologist (sid wade) fur ironer: [phone] Updated: 06/11/21 * Patient Instructions* Anupam Muniz MD - 02/05/2022 6:12 AM EDT Orthopaedic Surgery Discharge Instructions PROCEDURE: Open reduction and internal fixation of the left ankle MEDICATION: If you need a renewal of your pain medication, please contact the clinic at [phone]. PRESCRIPTION RENEWAL REQUEST CAN TAKE UP TO [...] taking them. You should also take an favc-tla-lqhodnr stool softener, colace or senna, to facilitate [...] 1. You will have follow-up appointments at [facility] as indicated below in Future Appointment and Orders. Future Appointments Date Time Provider Department Center 02/20/2022 11:00 AM [facility] 02/20/2022 11:30 AM Jewel Tavarez MD [facility] ORTH [address] [place] [address] If you have questions or concerns: Friday [...] presents for pre-operative examination. Please see Dr. Tavaerz's note for full details of the patient's [...] Operative Note Patient Name: Ever Sterling : [id number] MR#: [id number] Case Date: 02/05/2022 Surgeon: Surgeon(s) and Role: [...] Tavarez MD - 02/05/2022 8:17 AM EDT [facility] Operative Note Patient Name: Ever Sterlnig : [id number] MR#: [id number] Case Date: 02/05/2022 Surgeon: Surgeon(s) and Role: * Jweel Tavarez MD - Primary * Anupam Muniz [...] and held with provisional K wire. [employer] one third tubular platewas then positioned direct [...] EDT Open Tx Distal Tibiofibular Joint Disruption (49304) 02/05/2022 7:34 AM EDT Closed fracture of distal end of left fibula, initial encounter MODIFIER VARIAX 2 LOCKING SMALL FRAGMENT ELISE 02/05/2022 7:34 AM EDT Closed fracture of distal end of left fibula, initial encounter Open Tx Distal Fibular Fracture Lat Malleolus ([id number]) 02/05/2022 7:34 AM EDT Closed fracture of [...] ORIF L ankle fracture 02/05/22 Dr. Tavarez documented in this encounter Administered Medications Inactive [...] Given 02/05/2022 7:10 AM EDT 1 mg documented in this encounter Active and Recently [...] MD) documented in this encounter Care Teams Brand Strategist Relationship Specialty Start Date End Date Nikunj Tipton, ENROLLMENT COUNSELOR [address] [place] [address] PCP - General Family Medicine 01/28/22 documented as of this encounter
--- OUTSIDE RECORDS SUMMARY | 2024-06-16 14:46 | XMS_ITS | Encounter Summary ---
Author Organization [facility] [place] [address] Care Team Providers Care Patient Accounts Clerk Name Role Phone Nikunj Tipton APRN Primary Care Provider +1- [phone] Reason for Visit * Reason Onset Date Comments Questions 02/06/2022 Encounter Details Date Type Department Care Team (Late st Contact Info) Description 02/06/2022 [place] [phone] Jewel Tavarez MD [facility] [place] [address] Questions Social History Tobacco Use Types Packs/Day [...] * Telephone Encounter - Maribell Mishra - 02/07/2022 8:50 AM EDT Patient scheduled for appointment in clinic today with resident on day call. * Telephone Encounter - Bahman Hughes - 02/06/2022 3:11 PM EDTSummary: Call Back Name of person calling: Drea Have you had Surgery? Yes If so when? 02/05/22 Who was the Surgeon? Dr Tavarez ORIF ANKLE, LAT. MALLEOLUS, DISTAL FIBULAR FX (WRVU 8.75) - Left MODIFIER VARIAX 2 LOCKING SMALL FRAGMENT ELISE - Left ORIF SYNDESMOSIS, ANKLE (WRVU 8.8) - Left What is the question: Patient called in earlier and sent in a message on [facility] (below) there is something pushing into the back of my heal from the splint, tongue is still numb feels like splint may be to tight in general. Afraid of running out of pain medicine pain leval currently jonathan 8 and still numb Patient states that the nerve block has worn off. Splint is pressing into heel and causing leg tremors. Patient has been hesitant to take pain medicine for fear of running out, as well as there beingconflicting directions in regards to how to use Tylenol & Ibuprofen. Pain is at a high level. Please reach out to patient to discuss and give direction. Best number to reach the caller: [phone] * Telephone Encounter - Kurt Deleon - 02/06/2022 10:39 AM EDT Name of person calling: Patient's What is the question: Patient calling because he is reporting that he can feel something sharppushing on the back side of his heel and he is not sure why or if this is his splint. He is hoping the team will give him a call to discuss this. Best number to reach the caller: [phone] documented in this encounter Plan of Treatment Not on file documented as of this encounter Visit Diagnoses Not on filedocumented in this encounter Care Teams Patient Accounts Clerk Relationship Specialty Start Date End Date Nikunj Tipton APRN [address] [place] [address] PCP - General Family Medicine 01/28/22 documented as of this encounter
[2024-06-16 21:04] LABS: Abs Immature Grans 0.08 10^3/uL (0.0-0.06); Absolute Basophil Count 0.13 10^3/uL (0.0-0.2); Absolute Eosinophil Count 0.23 10^3/uL (0.0-0.7); Absolute Lymphocyte Count 4.53 10^3/uL (1.2-3.4); Basophils % 1.2 %; Eosinophils % 2.1 %; HCT 46.3 % (40.0-50.0); Immature Grans % 0.7 %; Lymphocytes % 40.7 %; MCHC 34.6 % (32.0-36.0); MCV 87 fL (80-95); MPV 9.6 fL (8.0-11.0); Monocytes % 7.2 %; Neutrophils % 48.1 %; Platelet Count 355 10^3/uL (130-400); RBC 5.34 10^6/uL (4.36-5.78); RDW 12.1 % (11.8-14.1); RDW-SD 38.3 fL; WBC 11.13 10^3/uL (4.4-10.8)
[2024-06-16 21:08] LABS: Absolute Neutrophil Count 5.35 10^3/uL (1.2-6.7)
[2024-06-16 21:24] LABS: ALT 59 U/L (16-63); AST 25 U/L (15-37); Albumin 4.2 g/dL (3.4-5.0); Alkaline Phosphatase 65 U/L (46-116); Anion Gap 9.1 mmol/L (3-11); BUN 9 mg/dL (7-18); Bilirubin, Total 0.47 mg/dL (0.2-1.0); CO2 27.9 mmol/L (21.0-32.0); CREATININE 0.8 mg/dL (0.70-1.30); Calcium 9.2 mg/dL (8.5-10.1); Chloride 105 mmol/L (98-107); Creatine Kinase 226 U/L (39-308); Estimated GFR 118.36 (mL/min/1.73m2); Glucose 92 mg/dL (74-106); Potassium 4.1 mmol/L (3.5-5.1); Sodium 142 mmol/L (136-145); TSH (W/Ref FT4) 1.94 uIU/mL (0.36-3.74); Total Protein 7.9 g/dL (6.4-8.2)
== END 2024-06-16 14:44 | disposition home or self-care (01) ==
LOC: LBN 14:43
PROVIDERS: PCP Nurse Practitioner Family; Visit Provider Family Medicine
DX: R73.09 Other abnormal glucose (principal); R42 Dizziness and giddiness; R00.0 Tachycardia, unspecified; E16.2 Hypoglycemia, unspecified; N17.9 Acute kidney failure, unspecified; M62.81 Muscle weakness (generalized); D72.829 Elevated white blood cell count, unspecified
CPT/HCPCS: 80053; 82550; 83036; 84443; 85025

== ENCOUNTER 2024-06-24 08:01 | Outpatient (RCR) | payer OTHER, SELFPAY | END 2024-07-03 23:59 | disposition home or self-care (01) | LOC: CARDOPNVT 08:01 | PROVIDERS: PCP Nurse Practitioner Family; Visit Provider Internal Medicine Cardiovascular Disease | DX: R55 Syncope and collapse (principal) | CPT/HCPCS: 93225; 93226 ==

== ENCOUNTER 2024-07-07 13:03 | Outpatient (REF) | payer OTHER, SELFPAY ==
[2024-07-09 11:27] LABS: Lyme Ab w Rflx to Lyme Confirm Negative (Negative)
[2024-07-11 15:16] LABS: Anaplasma phagocytophilum Negative (Negative); B. miyamotoi PCR Negative (Negative); Babesia divergens/MO-1 Negative (Negative); Babesia duncani Negative (Negative); Babesia microti Negative (Negative); Ehrlichia chaffeensis Negative (Negative); Ehrlichia ewingii/canis Negative (Negative); Ehrlichia muris eauclairensis Negative (Negative)
== END 2024-07-07 13:04 | disposition home or self-care (01) ==
LOC: LBN 13:03
PROVIDERS: PCP Nurse Practitioner Family; Visit Provider Nurse Practitioner Family
DX: R42 Dizziness and giddiness (principal)
CPT/HCPCS: 87798; 86618

== ENCOUNTER 2025-02-02 09:30 | Outpatient (CLI) | payer OTHER, SELFPAY ==
--- NOTE | 2025-02-02 09:30 | DI.RAD_ITS ---
Exam(s) XR CERVICAL SPINE COMP 4-5V EXAM: XR CERVICAL SPINE COMP 4-5V CLINICAL HISTORY: Cervicalgia, M54.2, neck pain with radiculopathy/failing PT. TECHNIQUE: 2D digital imaging was performed. COMPARISON: No exams were available for comparison FINDINGS: Five views No evidence of fracture, listhesis, nor offset of the spinal laminar line. There are no cervical ribs. There is mild disc space narrowing at C6-7 level. No obvious Luschka joint osteophytes. There are no cervical ribs. Bone density normal. No osseous lesions. No obvious facet arthropathy. IMPRESSION: Mild disc space narrowing at C6-7 level. DATA REPOSITORY: RADIATION DOSE DELIVERED:
== END 2025-02-02 09:50 ==
LOC: DI 02-03 05:20
PROVIDERS: PCP Nurse Practitioner Family; Visit Provider Nurse Practitioner Family
DX: M50.023 Cervical disc disorder at C6-C7 level with myelopathy (principal)
CPT/HCPCS: 72050

== ENCOUNTER 2025-03-21 14:04 | Outpatient (CLI) | payer OTHER, SELFPAY ==
--- NOTE | 2025-03-21 13:00 | DI.MRI_ITS ---
Exam(s) MR CERVICAL SPINE WO EXAM: MR CERVICAL SPINE WO CLINICAL HISTORY: Worsening neck pain /failing PT,m54.2 TECHNIQUE: Multiplanar multisequence MRI of the cervical spine was performed without intravenous contrast. COMPARISON: CR XR CERVICAL SPINE COMP 4-5V from 02/02/2025 FINDINGS: CERVICOMEDULLARY JUNCTION: Intact with no evidence of cerebellar tonsillar ectopia. No obvious abnormality of the odontoid process. No evidence of Chiari 1 malformation. CERVICAL SPINAL CORD: There is no abnormal signal in the cervical spinal cord and no evidence of focal cord atrophy nor focal cord swelling. OSSEOUS:There are no cervical fractures evident. No significant osseous lesions in the cervical vertebrae. There is slight reversal of the normal curvature with epicenter at C5-6 level. INDIVIDUAL LEVELS: C2-3: No disc herniation nor central canal stenosis. No foraminal stenosis. No facet arthropathy. C3-4: No disc herniation nor central canal stenosis.No facet arthropathy. No foraminal stenosis. C4-5: No disc herniation nor central canal stenosis.No facet arthropathy. No foraminal stenosis C5-6: There is mild disc space narrowing anteriorly. Posteriorly there is a large posterolateral left disc herniation which extends posteriorly 6 mm and measures approximately 10 mm wide and 10 mm craniocaudal. This indents the thecal sac and the left side of the spinal cord at this level. This occupies the left lateral recess and extends into the floor of the exiting left neural foramen, resulting in some left-sided foraminal stenosis. There is no foraminal stenosis on the opposite-right side. There is no abnormal signal in the cervical spinal cord at this level. Facet joints at this level appear unremarkable. C6-7: Mild disc space narrowing no significant disc herniation. Central canal dimensions are lower normal. Facet joints unremarkable. C7-T1: No disc herniation nor central canal stenosis. No facet arthropathy.No foraminal stenosis. IMPRESSION: 1. There is a significant posterolateral left disc herniation at C5-6 level as described above. 2. There is no significant facet arthropathy in the cervical spinal column. DATA REPOSITORY:
== END 2025-03-21 14:24 ==
LOC: DI 03-31 14:04
PROVIDERS: PCP Nurse Practitioner Family; Visit Provider Nurse Practitioner Family
DX: M54.2 Cervicalgia (principal)
CPT/HCPCS: 72141